=== PATIENT | male | born 1960 | race Caucasian/White ===

== ENCOUNTER 2017-02-03 21:17 | Inpatient (IN) | payer OTHER ==
[2017-02-03] MEDS ORDERED: MVI, Adult with Vitamin K 10 ML, Thiamine 100 MG, Folic Acid 1 MG in Lactated Ringers 1... IV ONE ×4 (21:41)
--- NOTE | 2017-02-03 21:47 | EDM.PDOC ---
ED HPI GENERAL MEDICAL PROBLEM - General Chief Complaint: Drug or Alcohol Abuse Stated Complaint: AMB Time Seen by Provider: 02/03/17 21:38 Source of Information: Reports: Patient History Limitations: Reports: No limitations - History of Present Illness INITIAL COMMENTS - FREE TEXT/NARRATIVE: This 56 yo male patient reports to the ED with generalized weakness and dehydration. The patient reports he is a chronic alcoholic, but ran out of ETOH 2 days ago. Since that time, the patient reports he has not been eating or drinking much due to lack of energy. The patient reports he has been to treatment for ETOH 7 times, but continues to go back to drinking. Onset: gradual Duration: Day(s):, Constant, Getting worse Location: Reports: generalized Quality: Reports: Dull Severity: moderate Improves with: Reports: None Worsens with: Reports: None Associated Symptoms: Reports: cough, weakness Bilateral Thoracic Pain Score (Numeric/FACES): 2 - Related Data Allergies Allergy/AdvReac Type Severity Reaction Status Date / Time No Known Allergies Allergy Verified 02/03/17 22:06 Home Meds: Home Meds Escitalopram [Lexapro] 10 mg PO DAILY #30 tablet 12/04/16 [Rx] Folic Acid 1 mg PO DAILY #30 tablet 12/04/16 [Rx] Magnesium Oxide 250 mg PO BIDM #60 tablet 12/04/16 [Rx] Multivitamins/Minerals [Vitamins and Minerals] 1 tab PO WITHBREAKFAST #30 tablet 12/04/16 [Rx] Thiamine [Vitamin B-1] 100 mg PO DAILY #30 tablet 12/04/16 [Rx] Past Medical History - Past Health History Medical/Surgical History: Denies Medical/Surgical History HEENT History: Reports: None Cardiovascular History: Reports: None Respiratory History: Reports: None Gastrointestinal History: Reports: None Genitourinary History: Reports: None Musculoskeletal History: Reports: None Other Musculoskeletal History: fractured left knuckle cast was placed Neurological History: Reports: None Psychiatric History: Reports: Anxiety, Depression Endocrine/Metabolic History: Reports: None Hematologic History: Reports: None Immunologic History: Reports: None Oncologic (Cancer) History: Reports: None Dermatologic History: Reports: None - Infectious Disease History Infectious Disease History: Reports: None - Past Surgical History Head Surgeries/Procedures: Reports: None Social & Family History - Family History Family Medical History: Noncontributory Cardiac: Reports: CAD (father) - Tobacco Use Smoking Status *Q: Current Every Day Smoker Years of Tobacco use: 35 Packs/Tins Daily: 1 Second Hand Smoke Exposure: No - Caffeine Use Caffeine Use: Reports: Coffee, Soda - Alcohol Use Days Per Week of Alcohol Use: 7 Number of Drinks Per Day: 2 Total Drinks Per Week: 14 - Recreational Drug Use Recreational Drug Use: No ED ROS GENERAL - Review of Systems Review Of Systems: ROS reveals no pertinent complaints other than HPI. ED EXAM, GENERAL - Physical Exam Exam: See Below Exam Limited By: No limitations General Appearance: alert, WD/WN, lethargic, moderate distress, thin Eye Exam: bilateral eye: EOMI, normal inspection Ears: normal external exam, normal canal, hearing grossly normal, normal TMs Nose: normal inspection, normal mucosa, no blood Throat/Mouth: Normal inspection, Normal lips, Normal teeth, Normal gums, Normal oropharynx, Normal voice, No airway compromise Head: atraumatic Neck: normal inspection, supple, non-tender, full range of motion Respiratory/Chest: no respiratory distress, lungs clear, normal breath sounds, no accessory muscle use, chest non-tender Cardiovascular: normal peripheral pulses, regular rate, rhythm, no edema, no gallop, no JVD, no murmur, no rub GI/Abdominal: normal bowel sounds, soft, non tender, no organomegaly, no distention, no abnormal bruit, no mass (Male) Exam: Deferred Rectal (Males) Exam: Deferred Extremities: normal inspection, normal range of motion, non-tender, normal capillary refill, no pedal edema Neurological: alert, oriented, CN II-XII intact, normal cognition, normal gait, normal reflexes, no motor/sensory deficits Psychiatric: flat affect Skin Exam: Warm, Dry, Intact, Normal color, No rash Lymphatic: no adenopathy Course - Vital Signs Last Recorded V/S: Last Vital Signs Temp 36.6 C 02/03/17 21:33 Pulse 103 H 02/03/17 21:33 Resp 16 02/03/17 21:33 BP 163/84 H 02/03/17 21:33 Pulse Ox 98 02/03/17 21:33 - Orders/Labs/Meds Orders: Active Orders 24 hr Category Date Time Status DRUG SCREEN URINE BIORAD [URCHEM] Stat Lab 02/03/17 21:21 Uncollected UA W/MICROSCOPIC [URIN] Stat Lab 02/03/17 21:21 Uncollected MVI, Adult with Vitamin K [Infuvite Adult] 10 ml Med 02/03/17 21:41 Active Thiamine [Vitamin B-1] 100 mg Folic Acid 1 mg Lactated Ringers [Ringers, Lactated] 1,000 ml IV .BOLUS Medication Orders Multivitamins/Minerals 10 ml/Thiamine HCl 100 mg/ Folic Acid 1 mg/ Lactated Ringer's 1,011.2 mls @ 999 mls/hr IV .BOLUS ONE Stop: 02/03/17 22:41 Last Admin: 02/03/17 21:53 Dose: 999 mls/hr Labs: Laboratory Tests 02/03/17 02/03/17 02/03/17 Range/Units 21:35 21:35 21:35 WBC 6.9 (5.0-10.0) 10^3/uL RBC 4.21 L (4.6-6.2) 10^6/uL Hgb 13.6 L (14.0-18.0) g/dL Hct 37.0 L (40.0-54.0) % MCV 87.9 (80-100) fL MCH 32.3 (27.0-34.0) pg MCHC 36.8 H (33.0-35.0) g/dL Plt Count 289 (150-450) 10^3/uL Neut % (Auto) 67.8 (42.2-75.2) % Lymph % (Auto) 15.3 L (20.5-50.1) % Hendricks % (Auto) 15.6 H (2-8) % Eos % (Auto) 0.4 L (1.0-3.0) % Baso % (Auto) 0.9 (0.0-1.0) % Sodium 122 L (135-145) mmol/L Potassium 2.4 L (3.6-5.0) mmol/L Chloride 78 L (101-111) mmol/L Carbon Dioxide 22.0 (21.0-31.0) mmol/L Anion Gap 24.4 BUN 11 (7-18) mg/dL Creatinine 1.0 (0.6-1.3) mg/dL Est Cr Clr Drug Dosing TNP Estimated GFR (MDRD) > 60 BUN/Creatinine Ratio 11.00 Glucose 179 H (74-105) mg/dL Calcium 8.6 (8.4-10.2) mg/dl Magnesium 1.7 L (1.8-2.5) mg/dL Total Bilirubin 3.0 H (0.2-1.0) mg/dL AST 157 H (10-42) IU/L ALT 182 H (10-60) IU/L Alkaline Phosphatase 95 (42-121) IU/L Ammonia 44 H (11-35) umol/L Total Protein 6.9 (6.7-8.2) g/dl Albumin 4.0 (3.2-5.5) g/dl Globulin 2.9 Albumin/Globulin Ratio 1.38 Amylase 111 H (28-100) U/L Lipase 68 H (22-51) U/L Acetaminophen < 10 Ethyl Alcohol < 5 mg/dL Meds: Medications Generic Name Dose Route Start Last Admin Trade Name Freq PRN Reason Stop Dose Admin Multivitamins/Minerals 10 ml/ 1,011.2 mls @ 999 mls/hr 02/03/17 21:41 21:53 Thiamine HCl 100 mg/ Folic IV 02/03/17 22:41 999 mls/hr Acid 1 mg/ Lactated Ringer's .BOLUS ONE Administration Departure - Departure Time of Disposition: 10:14 Disposition: Admitted As Inpatient 67 Condition: poor Clinical Impression: Alcohol abuse, Hyponatremia, Hypokalemia, Elevated liver enzymes Forms: ED Department Discharge Care Plan Goals: Discussed the patient's history, examination and lab results with Dr. Thomas. Dr. Thomas accepted the patient for continued evaluation and management as an inpatient at [facility] in [place]. - My Orders Last 24 Hours: My Active Orders 02/03/17 21:21 DRUG SCREEN URINE BIORAD [URCHEM] Stat UA W/MICROSCOPIC [URIN] Stat 02/03/17 21:41 MVI, Adult with Vitamin K [Infuvite Adult] 10 ml Thiamine [Vitamin B-1] 100 mg Folic Acid 1 mg Lactated Ringers [Ringers, Lactated] 1,000 ml IV .BOLUS - Assessment/Plan Last 24 Hours: My Active Orders 02/03/17 21:21 DRUG SCREEN URINE BIORAD [URCHEM] Stat UA W/MICROSCOPIC [URIN] Stat 02/03/17 21:41 MVI, Adult with Vitamin K [Infuvite Adult] 10 ml Thiamine [Vitamin B-1] 100 mg Folic Acid 1 mg Lactated Ringers [Ringers, Lactated] 1,000 ml IV .BOLUS
[2017-02-03 22:02] LABS: CHLORIDE,CL 78 mmol/L (101-111); SODIUM,NA 122 mmol/L (135-145)
[2017-02-03 22:07] LABS: ACETAMINOPHEN < 10
[2017-02-03] MEDS ORDERED: Ondansetron 4 MG/2 ML SDV IVPUSH PRN (22:50)
[2017-02-03] MEDS ORDERED: Ibuprofen 200 MG Tab PO PRN (22:50)
[2017-02-03] MEDS ORDERED: Magnesium Sulfate/Water 2 GM in Premix Bag 1 BAG IV ONE (23:00)
[2017-02-03] MEDS: Dextrose 5%-0.9% NaCl with KCl 1,000 ML IV SCH (23:22)
--- NOTE | 2017-02-03 23:46 | HP ---
CHIEF COMPLAINT: Generalized weakness. HISTORY OF PRESENT ILLNESS: The patient is a 56-year-old male, who was admitted to the emergency room because of generalized weakness. The patient admitted that he has been drinking continuously for the last several weeks, and he has run out of his alcohol supply for about 2 days ago, and he did not want to drive, and since then, the patient has not been eating or drinking much due to lack of energy. The patient admits that he has been coughing some greenish phlegm, but he denies any syncope, headache, fever, chills, chest pain, orthopnea, PND, or any significant abdominal pain, and because of the above, he was seen in the emergency room, and in the emergency room, he was noted to have hyponatremia, hypokalemia, hypomagnesemia, and electrolyte imbalance, dehydration, and signs of alcoholic hepatitis and alcohol withdrawal. He was then admitted for further evaluation and management. PAST MEDICAL HISTORY: Remarkable for alcohol abuse. He has been in the treatment center 7 times, but would sober up for couple of weeks then back again to drink. He has also history of alcoholic hepatitis and anxiety and depression. FAMILY HISTORY: Noncontributory. SOCIAL HISTORY: The patient is a smoker, smokes pack per day, and he drinks alcohol significantly. Denies any illicit drug use. HOME MEDICATIONS: Includes: 1. Multivitamins. 2. Thiamine. 3. Folic acid. 4. Lexapro. 5. Mag oxide. ALLERGIES: No known drug allergies. REVIEW OF SYSTEMS: As in HPI. The rest of the review of systems is negative. PHYSICAL EXAMINATION: General: The patient is alert and oriented x3. The patient is slightly jittery. Vital Signs: Blood pressure is 163/84, pulse of 103, respiration of 16, temperature of 36.6, and pulse oximetry is 98% on room air. HEENT: Normocephalic. There are pink palpebral conjunctivae with mild scleral icterus. No JVD. No lymphadenopathy. Mucous membranes moist. Neck: Supple. Skin turgor slightly diminished. Heart: Slightly tachycardic. No gallops. No rubs. Lungs. Equal bilaterally with coarse breath sounds, but no significant crackles and no wheezing. Abdomen: Soft and nontender. Bowel sounds positive. Extremities: Negative for any significant pedal edema. No calf tenderness. LABORATORY DATA: CBC; WBC 6.9, hemoglobin 13.6, hematocrit 37, and platelet is 289. Sodium is 122, potassium is 2.4, chloride of 78, glucose is 179, total bilirubin of 3, AST of 157, ALT of 182, ammonia of 44, amylase is 111, and lipase is 68. Alcohol level is less than 5. ADMITTING DIAGNOSES: 1. Alcoholism. 2. Hyponatremia. 3. Hypokalemia. 4. Hypomagnesemia. 5. Alcoholic hepatitis. 6. Chronic pancreatitis secondary to alcoholism. TREATMENT PLAN: The patient is going to be admitted to General Medicine floor with telemetry. He will be given IV fluids, and electrolytes are going to be repleted. He will be on DT prophylaxis, and the rest of the management if necessary. The patient does not wish to be intubated or resuscitated just in case he goes into cardiopulmonary arrest. [facility] /[id number]
[2017-02-04] MEDS ORDERED: Potassium Chloride 10 MEQ Tab.ER PO ONE ×2 (00:07→08:07)
[2017-02-04] MEDS: LORazepam 1 MG Tab PO PRN ×3 (00:16→21:41)
[2017-02-04 06:58] LABS: CHLORIDE,CL 88 mmol/L (101-111); SODIUM,NA 130 mmol/L (135-145)
[2017-02-04] MEDS: Dextrose 5%-0.9% NaCl with KCl 1,000 ML IV SCH ×2 (07:27→16:57)
[2017-02-04] MEDS: Thiamine 100 MG Tab PO SCH (08:49)
[2017-02-04] MEDS: Multivitamins, Therapeutic with Minerals Tab PO SCH (08:49)
[2017-02-04] MEDS: Escitalopram 10 MG Tab PO SCH (08:49)
[2017-02-04] MEDS: Nicotine 21 MG/24 Hr Patch TRDERM SCH (08:50)
[2017-02-04] MEDS: Folic Acid 1 MG Tab PO SCH (08:50)
--- NOTE | 2017-02-04 09:05 | PN ---
DATE: 02/04/2017 SUBJECTIVE: The patient is slowly improving, still a little bit weak though, but denies any chest pain, shortness of breath, headache, abdominal pain, or any other significant complaints. He is scheduled for a chest x-ray today because of his coughing spells. OBJECTIVE: Vital Signs: Blood pressure is 136/65, pulse of 75, respiration of 20, temperature of 99.1. Heart: Regular rate and rhythm. Normal S1 and S2. No gallops. No rubs. Lungs: Equal bilaterally with coarse breath sounds, but no significant crackles, no wheezing. Abdomen: Soft, nontender. Bowel sounds positive. Extremities: Negative for any significant pedal edema. No calf tenderness. MEDICATIONS: Reviewed. LABORATORY DATA: Lab workup this morning; sodium is 130 (improving); potassium is 2.8, slowly improving; glucose is 149, calcium is 8.3; total bilirubin of 2.4; AST of 117; ALT of 144; lipase of 53; amylase of 86, which is now within normal limits. IMAGING: Telemetry is sinus rhythm with no significant arrhythmia. PLAN: We will give potassium 40 mEq p.o. x1 today. Otherwise, we will continue with the rest of his management. He is scheduled for chest x-ray today because of his coughing spells. We will order physical therapy for evaluation and management and will advance his diet to tolerated. We will recheck comp panel in a.m. [facility] /[id number]
--- NOTE | 2017-02-04 10:58 | CR ---
Clinical history: 56-year-old male with cough. Interpretation: Subtle peribronchial "cuffing" suggesting reactive airway disease (mild bronchitis). Normal tracheal airway and no focal lobar pneumonia, atelectasis or collapse. Normal cardiac silhouette without cephalization of vascular flow, signs of alveolar edema or depende nt pleural effusion. No pneumothorax.
[2017-02-05] MEDS: Dextrose 5%-0.9% NaCl with KCl 1,000 ML IV SCH (00:57)
[2017-02-05] MEDS: LORazepam 1 MG Tab PO PRN ×2 (01:19→21:46)
[2017-02-05 07:02] LABS: CHLORIDE,CL 96 mmol/L (101-111); SODIUM,NA 132 mmol/L (135-145)
[2017-02-05] MEDS: Folic Acid 1 MG Tab PO SCH (08:28)
[2017-02-05] MEDS: Escitalopram 10 MG Tab PO SCH (08:28)
[2017-02-05] MEDS: Multivitamins, Therapeutic with Minerals Tab PO SCH (08:28)
[2017-02-05] MEDS: Nicotine 21 MG/24 Hr Patch TRDERM SCH (08:28)
[2017-02-05] MEDS: Thiamine 100 MG Tab PO SCH (08:28)
[2017-02-05] MEDS: Phosphorus #1 250 MG Tab PO SCH ×3 (14:19→21:47)
--- NOTE | 2017-02-05 14:19 | PCM.PN ---
- General Info Date of Service: 02/05/17 Admission Dx/Problem (Free Text): generalized weakness Subjective Update: patient is still complaining of being weak. He denies other symptoms. - Review of Systems General: Reports: Fatigue, Malaise. Denies: Fever, Chills, Night Sweats HEENT: Reports: no symptoms Pulmonary: Reports: no symptoms Cardiovascular: Reports: No Symptoms Gastrointestinal: Reports: No symptoms Genitourinary: Reports: no symptoms Musculoskeletal: Reports: no symptoms Skin: Reports: no symptoms Neurological: Reports: No Symptoms Psychiatric: Reports: no symptoms Systems Review Comment:: he is still feeling somewhat anxious - Patient Data Vitals - most recent: Last Vital Signs Temp 36.6 C 02/05/17 11:00 Pulse 79 02/05/17 11:00 Resp 18 02/05/17 11:00 BP 129/89 02/05/17 11:00 Pulse Ox 100 02/05/17 11:00 Weight - most recent: 71.214 kg I&O - last 24 hours: Intake & Output 02/04/17 02/05/17 02/05/17 22:59 06:59 14:59 Intake Total 1202 2902 588 Output Total 100 1700 Balance 1102 1202 588 Lab Results last 24 hrs: Laboratory Results - last 24 hr 02/05/17 02/05/17 02/05/17 Range/Units 06:12 13:15 13:15 PT 9.9 (9.0-12.0) SEC INR 1.0 (0.9-1.2) Sodium 132 L (135-145) mmol/L Potassium 3.7 (3.6-5.0) mmol/L Chloride 96 L (101-111) mmol/L Carbon Dioxide 27.0 (21.0-31.0) mmol/L Anion Gap 12.7 BUN 7 (7-18) mg/dL Creatinine 0.6 (0.6-1.3) mg/dL Est Cr Clr Drug Dosing 140.12 mL/min Estimated GFR (MDRD) > 60 BUN/Creatinine Ratio 11.66 Glucose 145 H (74-105) mg/dL Calcium 8.6 (8.4-10.2) mg/dl Phosphorus < 1.0 L (2.5-4.6) mg/dL Magnesium 1.7 L (1.8-2.5) mg/dL Total Bilirubin 1.3 H (0.2-1.0) mg/dL AST 129 H (10-42) IU/L ALT 130 H (10-60) IU/L Alkaline Phosphatase 71 (42-121) IU/L Total Protein 6.0 L (6.7-8.2) g/dl Albumin 3.4 (3.2-5.5) g/dl Globulin 2.6 Albumin/Globulin Ratio 1.31 Med Orders - Current: Current Medications Escitalopram Oxalate (Lexapro) 10 mg PO DAILY [facility] Last Admin: 02/05/17 08:28 Dose: 10 mg Folic Acid (Folic Acid) 1 mg PO DAILY [facility] Last Admin: 02/05/17 08:28 Dose: 1 mg Potassium Chloride/Dextrose/Sod Cl (D5 Ns With 20 Meq Kcl) 1,000 mls @ 125 mls/ hr IV ASDIRECTED [facility] Last Admin: 02/05/17 00:57 Dose: 125 mls/hr Ibuprofen (Motrin) 200 mg PO Q6H PRN PRN Reason: Pain (mild 1-3) Last Admin: 02/04/17 21:42 Dose: 200 mg Lorazepam (Ativan) 1 mg PO Q2H PRN PRN Reason: alcohol withdrawal/anxiety Last Admin: 02/05/17 01:19 Dose: 1 mg Magnesium Oxide (Magnesium Oxide) 250 mg PO BIDM [facility] Last Admin: 02/05/17 08:28 Dose: 250 mg Multivitamins/Minerals (Vitamins And Minerals) 1 tab PO WITHBREAKFAST [facility] Last Admin: 02/05/17 08:28 Dose: 1 tab Nicotine (Habitrol) 21 mg TRDERM DAILY [facility] Last Admin: 02/05/17 08:28 Dose: 21 mg Ondansetron HCl (Zofran) 4 mg IVPUSH Q4H PRN PRN Reason: Nausea/Vomiting Last Admin: 02/04/17 11:41 Dose: 4 mg Sodium Phosphate (Neutra-Phos) 500 mg PO QID [facility] Stop: 02/06/17 09:01 Thiamine HCl (Vitamin B-1) 100 mg PO DAILY [facility] Last Admin: 02/05/17 08:28 Dose: 100 mg Discontinued Medications Multivitamins/Minerals 10 ml/Thiamine HCl 100 mg/ Folic Acid 1 mg/ Lactated Ringer's 1,011.2 mls @ 999 mls/hr IV .BOLUS ONE Stop: 02/03/17 22:41 Last Admin: 02/03/17 21:53 Dose: 999 mls/hr Magnesium Sulfate 2 gm/ Premix 50 mls @ 25 mls/hr IV ONETIME ONE Stop: 02/04/17 00:59 Last Admin: 02/03/17 23:22 Dose: 25 mls/hr Potassium Chloride (Klor-Con 10) 40 meq PO ONETIME ONE Stop: 02/04/17 00:08 Last Admin: 02/04/17 00:49 Dose: 40 meq Potassium Chloride (Klor-Con 10) 40 meq PO ONETIME ONE Stop: 02/04/17 08:08 Last Admin: 02/04/17 08:49 Dose: 40 meq - Exam General: alert, oriented, cooperative, no acute distress. No: sedated, lethargic, obtunded HEENT: Pupils equal, Pupils reactive, EOMI, Mucous membr. moist/pink Neck: supple, trachea midline, no JVD Lungs: Clear to auscultation, Normal respiratory effort. No: Crackles, Rales, Rhonchi, Rub, Stridor, Wheezing Cardiovascular: Regular Rate, Regular Rhythm, No Murmurs Abdomen: bowel sounds present, soft, no tenderness, no distension (Male) Exam: No hernia Back Exam: normal inspection Extremities: no edema Skin: warm, dry, intact Neurological: no new focal deficit Psy/Mental Status: alert, normal affect, normal mood - Problem List Review Problem List Initiated/Reviewed/Updated: Yes - My Orders Last 24 Hours: My Active Orders 02/05/17 14:09 Phosphorus #1 [Neutra-Phos] 500 mg PO QID 02/06/17 05:11 CMP [COMPREHENSIVE METABOLIC PN,CMP] [CHEM] AM - Plan Plan:: alcoholism he was advised to continue counseling. educational manager is arranging outpatient counseling. Generalized weakness Acute on chronic Most likely due to alcoholism and hypophosphatemia Physical therapy as needed hypophosphatemia We'll replace orally as we don't have IV medications Recheck tomorrow Hypomagnesemia Replace via IV Hyponatremia improving encourage oral intake History of alcohol hepatitis Liver enzymes are elevated but trending downward Continue to recheck liver enzymes continue Lovenox for DVT prophylaxis He still wishes to be DNR/DNI
[2017-02-05] MEDS ORDERED: Polyethylene Glycol 3350 Powder 17 GM Packet PO PRN (16:11)
[2017-02-05] MEDS ORDERED: Docusate Sodium 100 MG Cap PO PRN (16:11)
[2017-02-05] MEDS ORDERED: Magnesium Hydroxide 400 MG/5 ML Susp 30 ML Cup PO PRN (16:12)
[2017-02-06] MEDS: LORazepam 1 MG Tab PO PRN (01:29)
[2017-02-06 06:41] LABS: CHLORIDE,CL 95 mmol/L (101-111); SODIUM,NA 134 mmol/L (135-145)
[2017-02-06] MEDS ORDERED: Magnesium Sulfate/Water 2 GM in Premix Bag 1 BAG IV ONE (07:30)
[2017-02-06 07:38] VITALS: BP 125/88
--- NOTE | 2017-02-06 08:01 | PCM.DCSUM1 ---
Discharge Summary - Hospital Course Free Text/Narrative:: 56-year-old male presented to the emergency room with generalized weakness. Patient is known for continuous alcohol drinking for the last several weeks. he ran out of alcohol 2 days prior to admission. he did not want to drive to by alcohol. Physical and he did not eat or drink fluids much due to lack of energy. He admits having cough with phlegm but denies fever, chills, shortness of breath, chest pain, headache, syncope, orthopnea, PND, abdominal pain, unilateral weakness, facial drooping, change in speech, or any other symptoms. in the emergency room he was noted to have low sodiumat 122. Low potassium at 2.4. Chloride 78. Magnesium 1.7. AST 157. ALT 182. Total protein 3.0. Ammonia 44. Amylase 111. Lipase 68.urine drug toxicity was negative. This phosphorus was checked only 3 days later and was less than one. Patient gradually was getting better. Physical therapy discharged him from [facility] as patient was able to walk without the support. His cough resolved. His phosphorus was replaced orally and his phosphorus level today is 1.9. His magnesium today is 1.6. Patient feels safe to be discharged home. He is able to feed himself, walk , do daily activities. He was advised to continue alcohol counseling as an outpatient and consider inpatient treatment in [place]. Patient is agreeable. He received magnesium 2 g IV once prior to discharge. I will send him with 4 doses of Neutra-Phos 500 mg qid. He was advised to follow up as a primary care provider in 2-3 days and asked his provider to check his phosphorus and magnesium at that time. - Discharge Data Discharge Date: 02/06/17 Discharge Disposition: Home, Self-Care 01 Condition: Good - Discharge Diagnosis/Problem(s) (1) Hypophosphatemia SNOMED Code(s): 8178514 ICD Code: E83.39 - OTHER DISORDERS OF PHOSPHORUS METABOLISM Status: Acute Current Visit: Yes (2) Hypomagnesemia SNOMED Code(s): 051791204 ICD Code: E83.42 - HYPOMAGNESEMIA Status: Acute Current Visit: Yes (3) Alcohol abuse SNOMED Code(s): 18057821 ICD Code: F10.10 - ALCOHOL ABUSE, UNCOMPLICATED Status: Chronic Current Visit: Yes (4) Elevated liver enzymes SNOMED Code(s): 965157186, 028697532 ICD Code: R74.8 - ABNORMAL LEVELS OF OTHER SERUM ENZYMES Status: Chronic Current Visit: Yes (5) Hypokalemia SNOMED Code(s): 72382376 ICD Code: E87.6 - HYPOKALEMIA Status: Acute Current Visit: Yes (6) Hyponatremia SNOMED Code(s): 68838628 ICD Code: E87.1 - HYPO-OSMOLALITY AND HYPONATREMIA Status: Resolved Current Visit: Yes (7) Alcoholic hepatitis SNOMED Code(s): 683086433 ICD Code: K70.10 - ALCOHOLIC HEPATITIS WITHOUT ASCITES Status: Chronic Current Visit: No Qualifiers: Ascites presence: without ascites Qualified Code(s): K70.10 - Alcoholic hepatitis without ascites - Patient Summary/Data Consults: Consultations 02/04/17 08:50 Consult to Physical Therapy [PT Evaluation and Treatment] [CONS] Routine - Patient Instructions Diet: Regular Diet as Tolerated (encourage her self to eat at least 4-5 times a day. tried Ensure 34 times a day before meals) Activity: As Tolerated (try to exercise daily for 45 minutes on a regular basis) Driving: Do Not Drive (and to feel stronger) Showering/Bathing: May Shower Notify Provider of: Fever - Discharge Plan Prescriptions/Med Rec: Phosphorus #1 [Neutra-Phos] 500 mg PO QID #8 tablet Home Medications: Home Meds Escitalopram [Lexapro] 10 mg PO DAILY #30 tablet 12/04/16 [Rx] Folic Acid 1 mg PO DAILY #30 tablet 12/04/16 [Rx] Magnesium Oxide 250 mg PO BIDM #60 tablet 12/04/16 [Rx] Multivitamins/Minerals [Vitamins and Minerals] 1 tab PO WITHBREAKFAST #30 tablet 12/04/16 [Rx] Thiamine [Vitamin B-1] 100 mg PO DAILY #30 tablet 12/04/16 [Rx] Nicotine [Habitrol] 21 mg TRDERM DAILY patch 02/06/17 [Rx] Phosphorus #1 [Neutra-Phos] 500 mg PO QID #8 tablet 02/06/17 [Rx] Referrals: PCP,Unobtain [Primary Care Provider] - 02/08/17 (See your primary care provider or any other provider in 2-3 days. At your appointment please ask your provider to check your blood phosphorus and magnesium levels) - General Info Date of Service: 02/06/17 Admission Dx/Problem (Free Text: generalized weakness Subjective Update: today patient denies any symptoms other than being somewhat weak which markedly improved from yesterday according to him. - Review of Systems General: Reports: No Symptoms HEENT: Reports: no symptoms Pulmonary: Reports: no symptoms Cardiovascular: Reports: No Symptoms Gastrointestinal: Reports: No symptoms Genitourinary: Reports: no symptoms Musculoskeletal: Reports: no symptoms Skin: Reports: no symptoms Neurological: Reports: No Symptoms Psychiatric: Denies: confusion, agitation, hallucinations, suicidal ideation, homicidal ideation - Patient Data Vitals - Most Recent: Last Vital Signs Temp 36.8 C 02/06/17 07:36 Pulse 100 02/06/17 03:49 Resp 16 02/06/17 07:36 BP 125/88 02/06/17 07:36 Pulse Ox 100 02/06/17 07:36 Weight - Most Recent: 71.214 kg I&O - Last 24 hours: Intake & Output 02/05/17 02/06/17 02/06/17 22:59 06:59 14:59 Intake Total 350 1979 Balance 350 1979 Lab Results - Last 24 hrs: Laboratory Results - last 24 hr 02/05/17 02/05/17 02/06/17 Range/Units 13:15 13:15 06:19 PT 9.9 (9.0-12.0) SEC INR 1.0 (0.9-1.2) Sodium 134 L (135-145) mmol/L Potassium 3.7 (3.6-5.0) mmol/L Chloride 95 L (101-111) mmol/L Carbon Dioxide 32.0 H (21.0-31.0) mmol/L Anion Gap 10.7 BUN 6 L (7-18) mg/dL Creatinine 0.6 (0.6-1.3) mg/dL Est Cr Clr Drug Dosing 140.12 mL/min Estimated GFR (MDRD) > 60 BUN/Creatinine Ratio 10.00 Glucose 91 (74-105) mg/dL Calcium 9.0 (8.4-10.2) mg/dl Phosphorus < 1.0 L 1.9 L (2.5-4.6) mg/dL Magnesium 1.7 L 1.6 L (1.8-2.5) mg/dL Total Bilirubin 0.9 (0.2-1.0) mg/dL AST 154 H (10-42) IU/L ALT 168 H (10-60) IU/L Alkaline Phosphatase 83 (42-121) IU/L Total Protein 6.5 L (6.7-8.2) g/dl Albumin 3.8 (3.2-5.5) g/dl Globulin 2.7 Albumin/Globulin Ratio 1.41 Med Orders - Current: Current Medications Docusate Sodium (Colace) 200 mg PO BID PRN PRN Reason: Constipation Escitalopram Oxalate (Lexapro) 10 mg PO DAILY [facility] Last Admin: 02/05/17 08:28 Dose: 10 mg Folic Acid (Folic Acid) 1 mg PO DAILY [facility] Last Admin: 02/05/17 08:28 Dose: 1 mg Potassium Chloride/Dextrose/Sod Cl (D5 Ns With 20 Meq Kcl) 1,000 mls @ 125 mls/ hr IV ASDIRECTED [facility] Last Admin: 02/05/17 00:57 Dose: 125 mls/hr Magnesium Sulfate 2 gm/ Premix 50 mls @ 25 mls/hr IV ONETIME ONE Stop: 02/06/17 09:29 Ibuprofen (Motrin) 200 mg PO Q6H PRN PRN Reason: Pain (mild 1-3) Last Admin: 02/04/17 21:42 Dose: 200 mg Lorazepam (Ativan) 1 mg PO Q2H PRN PRN Reason: alcohol withdrawal/anxiety Last Admin: 02/06/17 01:29 Dose: 1 mg Magnesium Hydroxide (Milk Of Magnesia) 30 ml PO Q8H PRN PRN Reason: Constipation Magnesium Oxide (Magnesium Oxide) 250 mg PO BIDM [facility] Last Admin: 02/05/17 17:15 Dose: 250 mg Multivitamins/Minerals (Vitamins And Minerals) 1 tab PO WITHBREAKFAST [facility] Last Admin: 02/05/17 08:28 Dose: 1 tab Nicotine (Habitrol) 21 mg TRDERM DAILY [facility] Last Admin: 02/05/17 08:28 Dose: 21 mg Ondansetron HCl (Zofran) 4 mg IVPUSH Q4H PRN PRN Reason: Nausea/Vomiting Last Admin: 02/04/17 11:41 Dose: 4 mg Polyethylene Glycol (Miralax) 17 gm PO DAILY PRN PRN Reason: Constipation Sodium Phosphate (Neutra-Phos) 500 mg PO QID [facility] Stop: 02/06/17 09:01 Last Admin: 02/05/17 21:47 Dose: 500 mg Thiamine HCl (Vitamin B-1) 100 mg PO DAILY [facility] Last Admin: 02/05/17 08:28 Dose: 100 mg Discontinued Medications Multivitamins/Minerals 10 ml/Thiamine HCl 100 mg/ Folic Acid 1 mg/ Lactated Ringer's 1,011.2 mls @ 999 mls/hr IV .BOLUS ONE Stop: 02/03/17 22:41 Last Admin: 02/03/17 21:53 Dose: 999 mls/hr Magnesium Sulfate 2 gm/ Premix 50 mls @ 25 mls/hr IV ONETIME ONE Stop: 02/04/17 00:59 Last Admin: 02/03/17 23:22 Dose: 25 mls/hr Potassium Chloride (Klor-Con 10) 40 meq PO ONETIME ONE Stop: 02/04/17 00:08 Last Admin: 02/04/17 00:49 Dose: 40 meq Potassium Chloride (Klor-Con 10) 40 meq PO ONETIME ONE Stop: 02/04/17 08:08 Last Admin: 02/04/17 08:49 Dose: 40 meq - Exam General: Reports: alert, oriented, cooperative. Denies: no acute distress, mild distress, moderate distress, severe distress, sedated, lethargic HEENT: Reports: Pupils equal, Pupils reactive, EOMI, Mucous membr. moist/pink. Denies: Scleral icterus Neck: Reports: supple, trachea midline, no JVD Lungs: Reports: Clear to auscultation, Normal respiratory effort. Denies: Decreased breath sounds, Crackles, Rales, Rhonchi, Rub, Stridor, Wheezing Cardiovascular: Reports: Regular Rate, Regular Rhythm Abdomen: Reports: bowel sounds present, soft, no tenderness, no distension. Denies: rigidity, rebound, guarding, tenderness, distension, abnormal bowel sounds, CVA tenderness, organomegaly (Male) Exam: No hernia, Deferred Rectal (Males) Exam: Deferred Back Exam: Reports: normal inspection, full range of motion Extremities: Reports: no edema, normal pulses, no clubbing, no cyanosis, no calf tenderness, edema. Denies: calf tenderness Skin: Reports: warm, dry, intact Neurological: Reports: no new focal deficit, normal gait, normal speech, normal tone, strength equal bilateral, reflexes equal bilateral, sensation intact, cranial nerves intact Psy/Mental Status: Reports: alert, normal affect, normal mood. Denies: anxious , depressed, agitated, suicidal ideation, homicidal ideation, hallucinations *Q Meaningful Use (DIS) - VTE *Q VTE Criteria *Q: - Stroke *Q Stroke Criteria *Q: - AMI *Q AMI Criteria *Q:
[2017-02-06] MEDS: Thiamine 100 MG Tab PO SCH (08:35)
[2017-02-06] MEDS: Escitalopram 10 MG Tab PO SCH (08:35)
[2017-02-06] MEDS: Folic Acid 1 MG Tab PO SCH (08:36)
[2017-02-06] MEDS: Phosphorus #1 250 MG Tab PO SCH (08:36)
[2017-02-06] MEDS: Multivitamins, Therapeutic with Minerals Tab PO SCH (08:37)
[2017-02-06] MEDS: Nicotine 21 MG/24 Hr Patch TRDERM SCH (08:37)
== END 2017-02-06 14:00 | disposition home or self-care (01) | DRG 897 ==
LOC: DL.ED 21:17 → UNDOADMIN 22:30 → DL.MS 22:30
PROVIDERS: ADMIT Internal Medicine; ATTEND Internal Medicine
DX: F10.10 Alcohol abuse, uncomplicated (principal); E87.1 Hypo-osmolality and hyponatremia; K86.0 Alcohol-induced chronic pancreatitis; K70.10 Alcoholic hepatitis without ascites; E83.39 Other disorders of phosphorus metabolism; E83.42 Hypomagnesemia; R74.8 Abnormal levels of other serum enzymes; E87.6 Hypokalemia; F41.8 Other specified anxiety disorders; F17.200 Nicotine dependence, unspecified, uncomplicated; Y90.0 Blood alcohol level of less than 20 mg/100 ml; Z66 Do not resuscitate; R05 Cough
CPT/HCPCS: 36415; 71020; 80053; 80305; 81001; 82140; 82150; 83690; 83735; 84100; 85025; 85610; 96365; 97162-GP; 99284; A9270-GY; G0480; J2405; J3411; J3475; J3480; J3490; J7120

== ENCOUNTER 2017-03-13 12:50 | Emergency (ER) | payer OTHER ==
--- NOTE | 2017-03-13 12:49 | EDM.PDOC ---
ED HPI GENERAL MEDICAL PROBLEM - General Chief Complaint: Drug or Alcohol Abuse Stated Complaint: BLACKED OUT Time Seen by Provider: 03/13/17 12:48 Source of Information: Reports: Patient, EMS, Old records, RN, RN notes reviewed History Limitations: Reports: Altered mental status, Intoxication - History of Present Illness INITIAL COMMENTS - FREE TEXT/NARRATIVE: Arrives by ambulance with c/o frequent falls for 3 or 4 weeks. He admits to daily alcohol abuse, drinking approx. 1/3rd of a 1/2 gal. daily for several years. Pt has been to alcohol rehab/tx x7, most recently in Dec 2016 after which he was sober for only 1-2 weeks. Pt denies any significant head injury. Pt is unable to give any further history. Onset: unknown/unsure Duration: Week(s): (3-4), Recurring Location: Reports: generalized Severity: severe Improves with: Reports: None Worsens with: Reports: None Context: Reports: Other (alcohol abuse). Denies: Activity, Exercise, Lifting, Sick contact, Trauma Associated Symptoms: Reports: no other symptoms Face Pain Score (Numeric/FACES): 2 - Related Data Allergies Allergy/AdvReac Type Severity Reaction Status Date / Time No Known Allergies Allergy Verified 03/13/17 12:59 Home Meds: Home Meds Escitalopram [Lexapro] 10 mg PO DAILY #30 tablet 12/04/16 [Rx] Folic Acid 1 mg PO DAILY #30 tablet 12/04/16 [Rx] Magnesium Oxide 250 mg PO BIDM #60 tablet 12/04/16 [Rx] Multivitamins/Minerals [Vitamins and Minerals] 1 tab PO WITHBREAKFAST #30 tablet 12/04/16 [Rx] Thiamine [Vitamin B-1] 100 mg PO DAILY #30 tablet 12/04/16 [Rx] Nicotine [Habitrol] 21 mg TRDERM DAILY patch 02/06/17 [Rx] Phosphorus #1 [Neutra-Phos] 500 mg PO QID #8 tablet 02/06/17 [Rx] Past Medical History - Past Health History Medical/Surgical History: Denies Medical/Surgical History HEENT History: Reports: Other (see below) Other HEENT History: reading glasses Cardiovascular History: Reports: Hypertension Respiratory History: Reports: None Gastrointestinal History: Reports: None Genitourinary History: Reports: None Musculoskeletal History: Reports: None Other Musculoskeletal History: fractured left knuckle cast was placed Neurological History: Reports: Seizure Other Neuro History: due to ETOH intoxication Psychiatric History: Reports: Addiction, Anxiety, Depression, Other (see below) Other Psychiatric History: ETOH addiction Endocrine/Metabolic History: Reports: None Hematologic History: Reports: Folic acid Other Hematologic History: on folic acid supplement Immunologic History: Reports: None Oncologic (Cancer) History: Reports: None Dermatologic History: Reports: None - Infectious Disease History Infectious Disease History: Reports: None - Past Surgical History Head Surgeries/Procedures: Reports: None Social & Family History - Family History Family Medical History: Noncontributory Cardiac: Reports: CAD Psychiatric: Reports: Other (see below) Other Psychiatric Family History: brother of ETOH abuse - Tobacco Use Smoking Status *Q: Current Every Day Smoker Years of Tobacco use: 34 Packs/Tins Daily: 0.5 Used Tobacco, but Quit: No Second Hand Smoke Exposure: No - Caffeine Use Caffeine Use: Reports: Soda Caffeine Use Comment: coffee makes pt sick - Alcohol Use Days Per Week of Alcohol Use: 7 Number of Drinks Per Day: 5 Total Drinks Per Week: 35 - Recreational Drug Use Recreational Drug Use: No - Living Situation & Occupation Living situation: Reports: , with spouse Occupation: unemployed ED ROS GENERAL - Review of Systems Review Of Systems: ROS reveals no pertinent complaints other than HPI. - Physical Exam Exam: See Below Exam Limited By: Altered mental status General Appearance: alert, no apparent distress, thin, other (chronically ill appearing) Eye Exam: bilateral eye: EOMI, normal inspection, PERRL Ears: normal external exam, normal canal, hearing grossly normal, normal TMs Nose: normal inspection, normal mucosa, no blood Throat/Mouth: Normal lips, Normal oropharynx, Normal voice, No airway compromise , Other (dry oral membranes) Head Exam: normocephalic, other (facial contusions, scalp contusions) Neck: normal inspection, supple, non-tender, full range of motion. No: lymphadenopathy (L), lymphadenopathy (R) Respiratory/Chest: no respiratory distress, lungs clear, normal breath sounds, no accessory muscle use, chest non-tender Cardiovascular: normal peripheral pulses, regular rate, rhythm, no edema, no gallop, no JVD, no murmur, no rub GI/Abdominal: Normal Bowel Sounds, Soft, Non-Tender, No Distention, No Abnormal Bruit, No Mass, Hepatomegaly. No: Guarding, Rigid, Rebound (Male) Exam: Deferred Rectal (Males) Exam: Deferred Neuro Exam (Abbreviated): alert, oriented, CN II-XII intact, normal cognition, no motor/sensory deficits Back Exam: normal inspection, full range of motion, NT Extremities: normal inspection, normal range of motion, non-tender, no pedal edema, normal capillary refill Psychiatric: normal affect, normal mood Skin Exam: Warm, Dry, No rash, Wound/incision (subacute abrasion to nose), Other (multiple contusions from head to toe in various stages of healing) EKG INTERPRETATION EKG Date: 03/13/17 Time: 12:59 Rhythm: other (SR) Rate (beats/min): 97 [place]: normal P-wave: present QRS: other (PVC) ST-T: normal QT: prolonged ME/PQ Interval: short ME interval Comparison: NA - no prior EKG Course - Vital Signs Last Recorded V/S: Last Vital Signs Temp 36.2 C 03/13/17 12:55 Pulse 100 03/13/17 12:55 Resp 20 03/13/17 12:55 BP 126/92 H 03/13/17 12:55 Pulse Ox 100 03/13/17 12:55 Orthostatic Blood Pressure [ 67/48 Standing] Orthostatic Blood Pressure [ 96/71 Sitting] Orthostatic Blood Pressure [ 122/82 Supine] - Orders/Labs/Meds Orders: Active Orders 24 hr Category Date Time Status EKG 12 Lead [EKG Documentation Completion] [RC] STAT Care 03/13/17 12:58 Active Peripheral IV Care [RC] . DIRECTED Care 03/13/17 12:59 Active Magnesium Sulfate/Water [Magnesium Sulfate 4 GM in Med 03/13/17 14:04 Active Water 100 ML] 100 ml IV ONETIME Sodium Chloride 0.9% [Normal Saline] 1,000 ml Med 03/13/17 14:05 Active IV .BOLUS Sodium Chloride 0.9% [Saline Flush] Med 03/13/17 12:59 Active 10 ml FLUSH ASDIRECTED PRN Peripheral IV Insertion Adult [OM.PC] Stat Oth 03/13/17 12:58 Ordered Medication Orders Magnesium Sulfate (Magnesium Sulfate 4 Gm In Water 100 Ml) 100 mls @ 25 mls/hr IV ONETIME ONE Stop: 03/13/17 18:03 Last Admin: 03/13/17 14:47 Dose: 25 mls/hr Sodium Chloride (Normal Saline) 1,000 mls @ 999 mls/hr IV .BOLUS ONE Stop: 03/13/17 15:05 Last Admin: 03/13/17 14:47 Dose: 999 mls/hr Sodium Chloride (Saline Flush) 10 ml FLUSH ASDIRECTED PRN PRN Reason: Keep Vein Open Last Admin: 03/13/17 13:18 Dose: 10 ml Labs: Laboratory Tests 03/13/17 03/13/17 03/13/17 Range/Units 13:07 13:07 13:07 WBC 5.8 (5.0-10.0) 10^3/uL RBC 4.14 L (4.6-6.2) 10^6/uL Hgb 14.1 (14.0-18.0) g/dL Hct 38.5 L (40.0-54.0) % MCV 93.0 (80-100) fL MCH 34.1 H (27.0-34.0) pg MCHC 36.6 H (33.0-35.0) g/dL Plt Count 168 (150-450) 10^3/uL Neut % (Auto) 60.0 (42.2-75.2) % Lymph % (Auto) 18.2 L (20.5-50.1) % [place] % (Auto) 20.5 H (2-8) % Eos % (Auto) 0.3 L (1.0-3.0) % Baso % (Auto) 1.0 (0.0-1.0) % Add Manual Diff Yes Neutrophils % (Manual) 60 % Band Neutrophils % 5 % Lymphocytes % (Manual) 19 % Monocytes % (Manual) 15 % Eosinophils % (Manual) 1 % PT 10.2 (9.0-12.0) SEC INR 1.0 (0.9-1.2) APTT 24.4 (22.0-34.0) SEC Sodium 126 L (135-145) mmol/L Potassium 2.9 L (3.6-5.0) mmol/L Chloride 82 L (101-111) mmol/L Carbon Dioxide 20.0 L (21.0-31.0) mmol/L Anion Gap 26.9 BUN 15 (7-18) mg/dL Creatinine 0.9 (0.6-1.3) mg/dL Est Cr Clr Drug Dosing 89.25 mL/min Estimated GFR (MDRD) > 60 BUN/Creatinine Ratio 16.66 Glucose 103 (74-105) mg/dL Calcium 9.9 (8.4-10.2) mg/dl Magnesium 1.6 L (1.8-2.5) mg/dL Total Bilirubin 2.5 H (0.2-1.0) mg/dL AST 77 H (10-42) IU/L ALT 79 H (10-60) IU/L Alkaline Phosphatase 113 (42-121) IU/L Ammonia (11-35) umol/L Creatine Kinase 144 (26-174) IU/L Troponin I < 0.02 (0.00-0.02) ng/ml Total Protein 7.9 (6.7-8.2) g/dl Albumin 4.7 (3.2-5.5) g/dl Globulin 3.2 Albumin/Globulin Ratio 1.47 Amylase 104 H (28-100) U/L Lipase 45 (22-51) U/L TSH, Ultra Sensitive (0.35-7.0) uIu/mL Urine Color (YELLOW) Urine Appearance (CLEAR) Urine pH (5.0-9.0) Ur Specific [place] (1.005-1.030) Urine Protein (NEGATIVE) Urine Glucose (UA) (NEGATIVE) Urine Ketones (NEGATIVE) Urine Occult Blood (NEGATIVE) Urine Nitrite (NEGATIVE) Urine Bilirubin (NEGATIVE) Urine Urobilinogen (0.2-1.0) mg/dL Ur Leukocyte Esterase (NEGATIVE) Urine RBC /HPF Urine WBC (0-5/HPF) /HPF Ur Epithelial Cells /HPF Amorphous Sediment (0/HPF) /HPF Urine Mucus /LPF Urine Opiates Screen (NEGATIVE) Ur Oxycodone Screen (NEGATIVE) Urine Methadone Screen (NEGATIVE) Ur Barbiturates Screen (NEGATIVE) U Tricyclic Antidepress (NEGATIVE) Ur Phencyclidine Scrn (NEGATIVE) Ur Amphetamine Screen (NEGATIVE) U Methamphetamines Scrn (NEGATIVE) Urine MDMA Screen (NEGATIVE) U Benzodiazepines Scrn (NEGATIVE) Urine Cocaine Screen (NEGATIVE) U Marijuana (THC) Screen (NEGATIVE) Ethyl Alcohol 34 mg/dL 03/13/17 03/13/17 03/13/17 Range/Units 13:07 13:07 14:15 WBC (5.0-10.0) 10^3/uL RBC (4.6-6.2) 10^6/uL Hgb (14.0-18.0) g/dL Hct (40.0-54.0) % MCV (80-100) fL MCH (27.0-34.0) pg MCHC (33.0-35.0) g/dL Plt Count (150-450) 10^3/uL Neut % (Auto) (42.2-75.2) % Lymph % (Auto) (20.5-50.1) % [place] % (Auto) (2-8) % Eos % (Auto) (1.0-3.0) % Baso % (Auto) (0.0-1.0) % Add Manual Diff Neutrophils % (Manual) % Band Neutrophils % % Lymphocytes % (Manual) % Monocytes % (Manual) % Eosinophils % (Manual) % PT (9.0-12.0) SEC INR (0.9-1.2) APTT (22.0-34.0) SEC Sodium (135-145) mmol/L Potassium (3.6-5.0) mmol/L Chloride (101-111) mmol/L Carbon Dioxide (21.0-31.0) mmol/L Anion Gap BUN (7-18) mg/dL Creatinine (0.6-1.3) mg/dL Est Cr Clr Drug Dosing mL/min Estimated GFR (MDRD) BUN/Creatinine Ratio Glucose (74-105) mg/dL Calcium (8.4-10.2) mg/dl Magnesium (1.8-2.5) mg/dL Total Bilirubin (0.2-1.0) mg/dL AST (10-42) IU/L ALT (10-60) IU/L Alkaline Phosphatase (42-121) IU/L Ammonia 47 H (11-35) umol/L Creatine Kinase (26-174) IU/L Troponin I (0.00-0.02) ng/ml Total Protein (6.7-8.2) g/dl Albumin (3.2-5.5) g/dl Globulin Albumin/Globulin Ratio Amylase (28-100) U/L Lipase (22-51) U/L TSH, Ultra Sensitive 2.50 (0.35-7.0) uIu/mL Urine Color (YELLOW) Urine Appearance (CLEAR) Urine pH (5.0-9.0) Ur Specific [place] (1.005-1.030) Urine Protein (NEGATIVE) Urine Glucose (UA) (NEGATIVE) Urine Ketones (NEGATIVE) Urine Occult Blood (NEGATIVE) Urine Nitrite (NEGATIVE) Urine Bilirubin (NEGATIVE) Urine Urobilinogen (0.2-1.0) mg/dL Ur Leukocyte Esterase (NEGATIVE) Urine RBC /HPF Urine WBC (0-5/HPF) /HPF Ur Epithelial Cells /HPF Amorphous Sediment (0/HPF) /HPF Urine Mucus /LPF Urine Opiates Screen Negative (NEGATIVE) Ur Oxycodone Screen Negative (NEGATIVE) Urine Methadone Screen Negative (NEGATIVE) Ur Barbiturates Screen Negative (NEGATIVE) U Tricyclic Antidepress Negative (NEGATIVE) Ur Phencyclidine Scrn Negative (NEGATIVE) Ur Amphetamine Screen Negative (NEGATIVE) U Methamphetamines Scrn Negative (NEGATIVE) Urine MDMA Screen Negative (NEGATIVE) U Benzodiazepines Scrn Negative (NEGATIVE) Urine Cocaine Screen Negative (NEGATIVE) U Marijuana (THC) Screen Negative (NEGATIVE) Ethyl Alcohol mg/dL 03/13/17 Range/Units 14:15 WBC (5.0-10.0) 10^3/uL RBC (4.6-6.2) 10^6/uL Hgb (14.0-18.0) g/dL Hct (40.0-54.0) % MCV (80-100) fL MCH (27.0-34.0) pg MCHC (33.0-35.0) g/dL Plt Count (150-450) 10^3/uL Neut % (Auto) (42.2-75.2) % Lymph % (Auto) (20.5-50.1) % [place] % (Auto) (2-8) % Eos % (Auto) (1.0-3.0) % Baso % (Auto) (0.0-1.0) % Add Manual Diff Neutrophils % (Manual) % Band Neutrophils % % Lymphocytes % (Manual) % Monocytes % (Manual) % Eosinophils % (Manual) % PT (9.0-12.0) SEC INR (0.9-1.2) APTT (22.0-34.0) SEC Sodium (135-145) mmol/L Potassium (3.6-5.0) mmol/L Chloride (101-111) mmol/L Carbon Dioxide (21.0-31.0) mmol/L Anion Gap BUN (7-18) mg/dL Creatinine (0.6-1.3) mg/dL Est Cr Clr Drug Dosing mL/min Estimated GFR (MDRD) BUN/Creatinine Ratio Glucose (74-105) mg/dL Calcium (8.4-10.2) mg/dl Magnesium (1.8-2.5) mg/dL Total Bilirubin (0.2-1.0) mg/dL AST (10-42) IU/L ALT (10-60) IU/L Alkaline Phosphatase (42-121) IU/L Ammonia (11-35) umol/L Creatine Kinase (26-174) IU/L Troponin I (0.00-0.02) ng/ml Total Protein (6.7-8.2) g/dl Albumin (3.2-5.5) g/dl Globulin Albumin/Globulin Ratio Amylase (28-100) U/L Lipase (22-51) U/L TSH, Ultra Sensitive (0.35-7.0) uIu/mL Urine Color Dark yellow (YELLOW) Urine Appearance Slightly cloudy (CLEAR) Urine pH 6.5 (5.0-9.0) Ur Specific [place] 1.015 (1.005-1.030) Urine Protein 100 H (NEGATIVE) Urine Glucose (UA) Negative (NEGATIVE) Urine Ketones 80 H (NEGATIVE) Urine Occult Blood Negative (NEGATIVE) Urine Nitrite Negative (NEGATIVE) Urine Bilirubin Moderate H (NEGATIVE) Urine Urobilinogen 2.0 H (0.2-1.0) mg/dL Ur Leukocyte Esterase Negative (NEGATIVE) Urine RBC 0-5 /HPF Urine WBC 0-5 (0-5/HPF) /HPF Ur Epithelial Cells Rare /HPF Amorphous Sediment Rare (0/HPF) /HPF Urine Mucus Moderate H /LPF Urine Opiates Screen (NEGATIVE) Ur Oxycodone Screen (NEGATIVE) Urine Methadone Screen (NEGATIVE) Ur Barbiturates Screen (NEGATIVE) U Tricyclic Antidepress (NEGATIVE) Ur Phencyclidine Scrn (NEGATIVE) Ur Amphetamine Screen (NEGATIVE) U Methamphetamines Scrn (NEGATIVE) Urine MDMA Screen (NEGATIVE) U Benzodiazepines Scrn (NEGATIVE) Urine Cocaine Screen (NEGATIVE) U Marijuana (THC) Screen (NEGATIVE) Ethyl Alcohol mg/dL Meds: Medications Generic Name Dose Route Start Last Admin Trade Name Freq PRN Reason Stop Dose Admin Magnesium Sulfate 100 mls @ 25 mls/hr 03/13/17 14:04 03/13/17 14:47 Magnesium Sulfate 4 Gm In Water 100 Ml IV 03/13/17 18:03 25 mls/hr ONETIME ONE Administration Sodium Chloride 1,000 mls @ 999 mls/hr 03/13/17 14:05 03/13/17 14:47 Normal Saline IV 03/13/17 15:05 999 mls/hr .BOLUS ONE Administration Sodium Chloride 10 ml 03/13/17 12:59 03/13/17 13:18 Saline Flush FLUSH 10 ml ASDIRECTED PRN Administration Keep Vein Open Discontinued Medications Generic Name Dose Route Start Last Admin Trade Name Freq PRN Reason Stop Dose Admin Multivitamins/Minerals 10 ml/ 1,011.2 mls @ 999 mls/hr 03/13/17 13:00 13:32 Thiamine HCl 100 mg/ Folic IV 03/13/17 14:00 999 mls/hr Acid 1 mg/ Lactated Ringer's .BOLUS ONE Administration Potassium Chloride 10 meq/ 100 mls @ 100 mls/hr 03/13/17 13:59 03/13/17 14:47 Premix IV 03/13/17 14:58 100 mls/hr ONETIME ONE Administration Potassium Chloride 40 meq 03/13/17 13:58 03/13/17 14:48 Klor-Con 10 PO 03/13/17 13:59 40 meq ONETIME ONE Administration - Radiology Interpretation Free Text/Narrative:: CXR: Not acute process per Rad. report. CT Head: multilobar multi-infarct disease and extensive frontal lobe ischemia. Large arachnoid cyst left temporal lobe fossa. No fracture or sign of closed head trauma per Rad. report. CT Results Date: 03/13/17 - Re-Assessments/Exams Free Text/Narrative Re-Assessment/Exam: 03/13/17 15:15 I explained the exam findings, results of all diagnostic tests, working diagnosis, and any potential or additionally considered diagnoses, treatment/ disposition plan, self/home care instructions, rational for the diagnosis/ treatment plan/disposition plan, anticipated course of illness, and follow up instructions to the pt and/or pts family or guardian. The pt and/or pts family or guardian acknowledges understanding of the above explanation(s), and of the signs and symptoms which should prompt the return of the pt to the ER should those or any other concerning symptoms develop. Departure - Departure Time of Disposition: 14:40 Disposition: DC/Tfer to [facility] 02 Condition: serious Clinical Impression: Ischemic stroke of frontal lobe, Hyponatremia, Hypokalemia, Hypomagnesemia, Arachnoid cyst, Severe alcohol use disorder, Contusion, multiple sites, Frequent falls, Orthostatic hypotension - Discharge Information Forms: ED Department Discharge, Interfacility Transfer EMTALA - My Orders Last 24 Hours: My Active Orders 03/13/17 12:58 EKG 12 Lead [EKG Documentation Completion] [RC] STAT Peripheral IV Insertion Adult [OM.PC] Stat 03/13/17 12:59 Peripheral IV Care [RC] . DIRECTED Sodium Chloride 0.9% [Saline Flush] 10 ml FLUSH ASDIRECTED PRN 03/13/17 14:04 Magnesium Sulfate/Water [Magnesium Sulfate 4 GM in Water 100 ML] 100 ml IV ONETIME 03/13/17 14:05 Sodium Chloride 0.9% [Normal Saline] 1,000 ml IV .BOLUS - Assessment/Plan Last 24 Hours: My Active Orders 03/13/17 12:58 EKG 12 Lead [EKG Documentation Completion] [RC] STAT Peripheral IV Insertion Adult [OM.PC] Stat 03/13/17 12:59 Peripheral IV Care [RC] . DIRECTED Sodium Chloride 0.9% [Saline Flush] 10 ml FLUSH ASDIRECTED PRN 03/13/17 14:04 Magnesium Sulfate/Water [Magnesium Sulfate 4 GM in Water 100 ML] 100 ml IV ONETIME 03/13/17 14:05 Sodium Chloride 0.9% [Normal Saline] 1,000 ml IV .BOLUS
[2017-03-13 12:58] VITALS: BP 126/92
[2017-03-13] MEDS ORDERED: Sodium Chloride 0.9% 10 ML Syringe FLUSH PRN (12:59)
[2017-03-13] MEDS ORDERED: MVI, Adult with Vitamin K 10 ML, Thiamine 100 MG, Folic Acid 1 MG in Lactated Ringers 1... IV ONE ×4 (13:00)
[2017-03-13 13:37] LABS: CHLORIDE,CL 82 mmol/L (101-111); SODIUM,NA 126 mmol/L (135-145)
--- NOTE | 2017-03-13 13:51 | CT ---
Clinical history: 56-year-old alcoholic male frequent falls and head injury. Scan technique: Volume acquisition of data emergency unenhanced CT scan of the head obtained with pa tient lying supine on the Siemens multi slice CT scanner [facility]. All data archived in the PACS system for storage and study (bone/brain windows). Interpretation: Uniformly thick bony calvarium and symmetric clear pneumatization of the mastoid/par anasal sinuses. No sign of skull fracture, underlying brain contusion or epidural/subdural hematoma. No supratentorial or posterior fossa mass lesion. No hydrocephalus. Large, left temporal lobe, arachnoid cyst. Scattered areas of decreased attenuation of the periventricular white matter and extensive decreased attenuation involving the frontal lobes bilaterally characteristic of ischemic disease. No sign of acute intracerebral/intraventricular/subarachnoid bleed. CONCLUSION: Multilobar multi-infarct ischemic disease and extensive frontal lobe ischemia. Large isaiah chnoid cyst left temporal lobe fossa. No fracture or sign of closed head trauma.
[2017-03-13] MEDS ORDERED: Potassium Chloride 10 MEQ Tab.ER PO ONE (13:58)
[2017-03-13] MEDS ORDERED: Potassium Chloride 10 MEQ in Premix Bag 1 BAG IV ONE (13:59)
--- NOTE | 2017-03-13 13:59 | CR ---
Clinical history: 56-year-old male frequent falls. INDICATION: AP portable chest unremarkable. No fractures the bony thorax signs of lung contusion atelectasis pleural effusion or pneumothorax. Normal cardiac silhouette and mediastinal width. No foreign bodies (gown snaps). No cephalization of vascular flow, signs of alveolar edema or dependent effusion. No lung mass, hilar lymphadenopathy or focal lobar pneumonia.
[2017-03-13] MEDS ORDERED: Magnesium Sulfate/Water 100 ML IV ONE (14:04)
[2017-03-13] MEDS ORDERED: Sodium Chloride 0.9% 1,000 ML IV ONE (14:05)
--- NOTE | 2017-03-19 12:18 | EKG ---
03/13/2017 - PATRICIA BOWERS I reviewed the EKG and agree with the machine's reading. [facility] /[id number]
== END 2017-03-13 15:10 ==
LOC: DL.ED 12:50
DX: I63.9 Cerebral infarction, unspecified (principal); R29.6 Repeated falls; F41.8 Other specified anxiety disorders; T14.8 Other injury of unspecified body region; I95.1 Orthostatic hypotension; E87.1 Hypo-osmolality and hyponatremia; E87.6 Hypokalemia; E83.42 Hypomagnesemia; G93.0 Cerebral cysts; I10 Essential (primary) hypertension; W19.XXXA Unspecified fall, initial encounter; Y92.019 Unspecified place in single-family (private) house as the place of occurrence of the external cause; F10.20 Alcohol dependence, uncomplicated; F17.200 Nicotine dependence, unspecified, uncomplicated; Z79.899 Other long term (current) drug therapy
CPT/HCPCS: 36415; 70450; 71010; 80053; 80305; 81001; 82140; 82150; 82550; 83690; 83735; 84443; 84484; 85025; 85610; 85730; 93005; 96361; 96365; 99285; A9270; G0480; J3411; J3475; J3480; J7030; J7050; J7120; J3490

== ENCOUNTER 2017-06-13 15:59 | Observation (INO) | payer OTHER ==
[2017-06-13] MEDS ORDERED: Sodium Chloride 0.9% 10 ML Syringe FLUSH PRN (16:08)
[2017-06-13] MEDS ORDERED: MVI, Adult with Vitamin K 10 ML, Thiamine 100 MG, Folic Acid 1 MG in Lactated Ringers 1... IV ONE ×4 (16:08)
[2017-06-13 16:32] LABS: CHLORIDE,CL 105 mmol/L (101-111); SODIUM,NA 144 mmol/L (135-145)
--- NOTE | 2017-06-13 16:58 | CT ---
Clinical history: 57-year-old male with history of EtOH abuse and now fall with head injury. Scan technique: Volume acquisition of data emergency unenhanced CT scan of the head and brain obtain ed with patient lying supine on the Siemens multislice scanner [facility]. All data archived in the PAC system for storage and study (bone/brain windows). Interpretation: Abnormal but unchanged from earlier exams. No new signs of skull fracture or closed head injury. 1. Asymmetric large arachnoid cyst left temporal fossa that was evident on previous CT scan head 27 November 2016. 2. Chronic multi-infarct ischemic disease involving the periventricular white matter of both cerebra l hemispheres and generalized atrophy pattern also unchanged. 3. *Uniformly thick bony calvarium without sign of skull fracture, underlying brain contusion or epi dural/subdural hematoma. 4. No sign of acute intracerebral/intraventricular/subarachnoid bleed. 5. No new supratentorial or posterior fossa mass lesion. No hydrocephalus.
[2017-06-13] MEDS ORDERED: Diphtheria,Pertussis(Acell),Tetanus Vaccine 0.5 ML SDV IM ONE (17:23)
[2017-06-13] MEDS ORDERED: Thiamine 100 MG Tab PO ONE (17:24)
--- NOTE | 2017-06-13 17:25 | EDM.PDOCBH ---
Scribed by Radha Polanco 06/13/17 [id number] for Frandy Guillaume MD ED HPI GENERAL MEDICAL PROBLEM - General Chief Complaint: Drug or Alcohol Abuse Stated Complaint: FELL,COMING FROM [facility] Time Seen by Provider: 06/13/17 15:59 Source of Information: Reports: Patient, RN, RN Notes Reviewed History Limitations: Reports: Other (alcohol intoxication.) - History of Present Illness INITIAL COMMENTS - FREE TEXT/NARRATIVE: Sent from clinic by Dr. Rasmussen with history of frequent falls with head injury and severe alcohol abuse. Patient admits to drinking about 750mls to 850mls of straight vodka every day for several years. Patient has a bed for a 1 year inpatient treatment in [place] once he is past acute alcohol withdrawal phase. Severity: Severe Improves with: Reports: None Worsens with: Reports: None Associated Symptoms: Reports: No Other Symptoms Left Upper Face Pain Score (Numeric/FACES): 1 - Related Data Allergies Allergy/AdvReac Type Severity Reaction Status Date / Time No Known Allergies Allergy Verified 06/13/17 16:00 Home Meds: Home Meds Escitalopram [Lexapro] 10 mg PO DAILY #30 tablet 12/04/16 [Rx] Folic Acid 1 mg PO DAILY #30 tablet 12/04/16 [Rx] Magnesium Oxide 250 mg PO BIDM #60 tablet 12/04/16 [Rx] Multivitamins/Minerals [Vitamins and Minerals] 1 tab PO WITHBREAKFAST #30 tablet 12/04/16 [Rx] Thiamine [Vitamin B-1] 100 mg PO DAILY #30 tablet 12/04/16 [Rx] Nicotine [Habitrol] 21 mg TRDERM DAILY patch 02/06/17 [Rx] Phosphorus #1 [Neutra-Phos] 500 mg PO QID #8 tablet 02/06/17 [Rx] Past Medical History - Past Health History Medical/Surgical History: Denies Medical/Surgical History HEENT History: Reports: Other (See Below) Other HEENT History: reading glasses Cardiovascular History: Reports: Hypertension Respiratory History: Reports: None Gastrointestinal History: Reports: None Genitourinary History: Reports: None Musculoskeletal History: Reports: None Other Musculoskeletal History: fractured left knuckle cast was placed Neurological History: Reports: Seizure Other Neuro History: due to ETOH intoxication Psychiatric History: Reports: Addiction, Anxiety, Depression, Other (See Below) Other Psychiatric History: ETOH addiction Endocrine/Metabolic History: Reports: None Hematologic History: Reports: Folic Acid Other Hematologic History: on folic acid supplement Immunologic History: Reports: None Oncologic (Cancer) History: Reports: None Dermatologic History: Reports: None - Infectious Disease History Infectious Disease History: Reports: None - Past Surgical History Head Surgeries/Procedures: Reports: None Social & Family History - Family History Family Medical History: Noncontributory Cardiac: Reports: CAD Psychiatric: Reports: Other (See Below) Other Psychiatric Family History: brother of ETOH abuse - Tobacco Use Smoking Status *Q: Current Every Day Smoker Years of Tobacco use: 34 Packs/Tins Daily: 0.5 Used Tobacco, but Quit: No Second Hand Smoke Exposure: No - Caffeine Use Caffeine Use: Reports: Soda Caffeine Use Comment: coffee makes pt sick - Alcohol Use Days Per Week of Alcohol Use: 7 Number of Drinks Per Day: 5 Total Drinks Per Week: 35 - Recreational Drug Use Recreational Drug Use: No - Living Situation & Occupation Living situation: Reports: , with Spouse Occupation: Unemployed ED ROS GENERAL - Review of Systems Review Of Systems: ROS reveals no pertinent complaints other than HPI. ED EXAM, BEHAVIORAL HEALTH - Physical Exam Exam: See Below Exam Limited By: Intoxication General Appearance: Thin, Other (chronically ill appearing.) Eye Exam: Bilateral Eye: Normal Inspection Ears: Normal External Exam, Normal Canal, Hearing Grossly Normal, Normal TMs Nose: Normal Inspection, Normal Mucosa, No Blood Throat/Mouth: Normal Inspection, Normal Lips, Normal Teeth, Normal Gums, Normal Oropharynx, Normal Voice, No Airway Compromise Head: Atraumatic, Normocephalic Neck: Normal Inspection, Supple, Non-Tender, Full Range of Motion Respiratory/Chest: No Respiratory Distress, Lungs Clear, Normal Breath Sounds, No Accessory Muscle Use, Chest Non-Tender Cardiovascular: Regular Rate, Rhythm, Tachycardia GI/Abdominal: Normal Bowel Sounds, Non-Tender, No Distention, Other (positive hepatomegaly). No: Guarding, Rigid, Rebound (Male) Exam: Deferred Rectal (Males) Exam: Deferred Back Exam: Normal Inspection, Full Range of Motion, NT Extremities: Normal Inspection, Normal Range of Motion, Non-Tender, Normal Capillary Refill, No Pedal Edema Neurological: Other (generalized weakness) Skin Exam: Other (several day old laceration at left lateral eyebrow. Resolving bruise at right neck/upper lateral chest.) EKG INTERPRETATION EKG Date: 06/13/17 Time: 16:10 Rhythm: Other (sinus rhythm) Rate (Beats/Min): 77 [place]: Normal P-Wave: Present QRS: Normal ST-T: Normal QT: Normal COURSE, BEHAVIORAL HEALTH COMP - Course Vital Signs: Last Vital Signs Temp 36.9 C 06/13/17 16:01 Pulse 83 06/13/17 16:01 Resp 18 06/13/17 16:01 BP 131/80 06/13/17 16:01 Pulse Ox 100 06/13/17 16:01 Orders, Labs, Meds: Active Orders 24 hr Category Date Time Status EKG 12 Lead [EKG Documentation Completion] [RC] STAT Care 06/13/17 16:07 Active Peripheral IV Care [RC] . DIRECTED Care 06/13/17 16:08 Active Vaccines to be Administered [RC] PER UNIT ROUTINE Care 06/13/17 17:24 Active DRUG SCREEN URINE BIORAD [URCHEM] Stat Lab 06/13/17 16:07 Uncollected UA W/MICROSCOPIC [URIN] Stat Lab 06/13/17 16:07 Uncollected Multivitamins/Minerals [Vitamins and Minerals] Med 06/14/17 08:00 Active 1 tab PO WITHBREAKFAST Nicotine [Habitrol] Med 06/14/17 09:00 Active 21 mg TRDERM DAILY Sodium Chloride 0.9% [Saline Flush] Med 06/13/17 16:08 Active 10 ml FLUSH ASDIRECTED PRN Peripheral IV Insertion Adult [OM.PC] Stat Oth 06/13/17 16:07 Ordered Steri Strips Application [OM.PC] Routine Oth 06/13/17 17:24 Ordered Medication Orders Multivitamins/Minerals (Vitamins And Minerals) 1 tab PO WITHBREAKFAST DAVID Nicotine (Habitrol) 21 mg TRDERM DAILY DAVID Sodium Chloride (Saline Flush) 10 ml FLUSH ASDIRECTED PRN PRN Reason: Keep Vein Open Last Admin: 06/13/17 16:34 Dose: 10 ml Laboratory Tests 06/13/17 06/13/17 06/13/17 Range/Units 16:05 16:05 16:05 WBC 4.2 L (5.0-10.0) 10^3/uL RBC 3.66 L (4.6-6.2) 10^6/uL Hgb 12.9 L (14.0-18.0) g/dL Hct 37.9 L (40.0-54.0) % MCV 103.6 H (80-100) fL MCH 35.2 H (27.0-34.0) pg MCHC 34.0 (33.0-35.0) g/dL Plt Count 158 (150-450) 10^3/uL Neut % (Auto) 56.3 (42.2-75.2) % Lymph % (Auto) 31.1 (20.5-50.1) % [place] % (Auto) 9.9 H (2-8) % Eos % (Auto) 1.7 (1.0-3.0) % Baso % (Auto) 1.0 (0.0-1.0) % PT 10.1 (9.0-12.0) SEC INR 1.0 (0.9-1.2) APTT 23.2 (22.0-34.0) SEC Sodium 144 (135-145) mmol/L Potassium 3.9 (3.6-5.0) mmol/L Chloride 105 (101-111) mmol/L Carbon Dioxide 22.0 (21.0-31.0) mmol/L Anion Gap 20.9 BUN 9 (7-18) mg/dL Creatinine 0.8 (0.6-1.3) mg/dL Est Cr Clr Drug Dosing 95.92 mL/min Estimated GFR (MDRD) > 60 BUN/Creatinine Ratio 11.25 Glucose 122 H (74-105) mg/dL Calcium 8.3 L (8.4-10.2) mg/dl Magnesium 1.8 (1.8-2.5) mg/dL Total Bilirubin 0.8 (0.2-1.0) mg/dL AST 98 H (10-42) IU/L ALT 71 H (10-60) IU/L Alkaline Phosphatase 189 H (42-121) IU/L Ammonia (11-35) umol/L Creatine Kinase 52 (26-174) IU/L Total Protein 6.4 L (6.7-8.2) g/dl Albumin 3.5 (3.2-5.5) g/dl Globulin 2.9 Albumin/Globulin Ratio 1.21 Ethyl Alcohol 276 mg/dL 06/13/17 Range/Units 16:23 WBC (5.0-10.0) 10^3/uL RBC (4.6-6.2) 10^6/uL Hgb (14.0-18.0) g/dL Hct (40.0-54.0) % MCV (80-100) fL MCH (27.0-34.0) pg MCHC (33.0-35.0) g/dL Plt Count (150-450) 10^3/uL Neut % (Auto) (42.2-75.2) % Lymph % (Auto) (20.5-50.1) % [place] % (Auto) (2-8) % Eos % (Auto) (1.0-3.0) % Baso % (Auto) (0.0-1.0) % PT (9.0-12.0) SEC INR (0.9-1.2) APTT (22.0-34.0) SEC Sodium (135-145) mmol/L Potassium (3.6-5.0) mmol/L Chloride (101-111) mmol/L Carbon Dioxide (21.0-31.0) mmol/L Anion Gap BUN (7-18) mg/dL Creatinine (0.6-1.3) mg/dL Est Cr Clr Drug Dosing mL/min Estimated GFR (MDRD) BUN/Creatinine Ratio Glucose (74-105) mg/dL Calcium (8.4-10.2) mg/dl Magnesium (1.8-2.5) mg/dL Total Bilirubin (0.2-1.0) mg/dL AST (10-42) IU/L ALT (10-60) IU/L Alkaline Phosphatase (42-121) IU/L Ammonia 17 (11-35) umol/L Creatine Kinase (26-174) IU/L Total Protein (6.7-8.2) g/dl Albumin (3.2-5.5) g/dl Globulin Albumin/Globulin Ratio Ethyl Alcohol mg/dL Medications Generic Name Dose Route Start Last Admin Trade Name Freq PRN Reason Stop Dose Admin Multivitamins/Minerals 1 tab 06/14/17 08:00 Vitamins And Minerals PO WITHBREAKFAST [facility] Nicotine 21 mg 06/14/17 09:00 Habitrol TRDERM DAILY DAVID Sodium Chloride 10 ml 06/13/17 16:08 06/13/17 16:34 Saline Flush FLUSH 10 ml ASDIRECTED PRN Administration Keep Vein Open Discontinued Medications Generic Name Dose Route Start Last Admin Trade Name Eloise PRN Reason Stop Dose Admin Diphtheria/Tetanus/Acell Pertussis 0.5 ml 06/13/17 17:23 Adacel IM 06/13/17 17:24 .ONCE ONE Multivitamins/Minerals 10 ml/ 1,011.2 mls @ 999 mls/hr 06/13/17 16:08 16:34 Thiamine HCl 100 mg/ Folic IV 06/13/17 17:08 999 mls/hr Acid 1 mg/ Lactated Ringer's .BOLUS ONE Administration CT head: Abnormal but unchanged frpm earlier exam. No new signs of skull fracture or closed head injury. See rad report. Departure - Departure Time of Disposition: 17:18 ((Admit to Dr. Judd)) Disposition: Admitted As Inpatient 67 Condition: Serious Clinical Impression: Chronic alcohol abuse, Frequent falls Acute alcohol intoxication Qualifiers: Complication of substance-induced condition: with unspecified complication Qualified Code(s): F10.929 - Alcohol use, unspecified with intoxication, unspecified Laceration of left eyebrow Qualifiers: Encounter type: initial encounter Qualified Code(s): S01.112A - Laceration without foreign body of left eyelid and periocular area, initial encounter - Discharge Information Referrals: PCP,None [Primary Care Provider] - Forms: ED Department Discharge - My Orders Last 24 Hours: My Active Orders 06/13/17 16:07 EKG 12 Lead [EKG Documentation Completion] [RC] STAT DRUG SCREEN URINE BIORAD [URCHEM] Stat UA W/MICROSCOPIC [URIN] Stat Peripheral IV Insertion Adult [OM.PC] Stat 06/13/17 16:08 Peripheral IV Care [RC] . DIRECTED Sodium Chloride 0.9% [Saline Flush] 10 ml FLUSH ASDIRECTED PRN 06/13/17 17:24 Vaccines to be Administered [RC] PER UNIT ROUTINE Steri Strips Application [OM.PC] Routine - Assessment/Plan Last 24 Hours: My Active Orders 06/13/17 16:07 EKG 12 Lead [EKG Documentation Completion] [RC] STAT DRUG SCREEN URINE BIORAD [URCHEM] Stat UA W/MICROSCOPIC [URIN] Stat Peripheral IV Insertion Adult [OM.PC] Stat 06/13/17 16:08 Peripheral IV Care [RC] . DIRECTED Sodium Chloride 0.9% [Saline Flush] 10 ml FLUSH ASDIRECTED PRN 06/13/17 17:24 Vaccines to be Administered [RC] PER UNIT ROUTINE Steri Strips Application [OM.PC] Routine I have read and agree with the documentation that has been completed regarding this visit. By signing this record, I attest that the documentation was completed in my physical presence and is an accurate record of the encounter.
[2017-06-13] MEDS ORDERED: LORazepam 1 MG Tab PO PRN (17:27)
[2017-06-13] MEDS ORDERED: LORazepam 2 MG/ML Syringe IVPUSH PRN (17:29)
[2017-06-13] MEDS ORDERED: Polyethylene Glycol 3350 Powder 17 GM Packet PO PRN (17:35)
[2017-06-13] MEDS ORDERED: Docusate Sodium 100 MG Cap PO PRN (17:35)
[2017-06-13] MEDS ORDERED: Acetaminophen 325 MG Tab PO PRN (17:35)
[2017-06-13] MEDS ORDERED: Ondansetron 4 MG Tab.DIS PO PRN (17:35)
--- NOTE | 2017-06-13 18:14 | PCM.HP ---
H&P History of Present Illness - General Date of Service: 06/13/17 Admit Problem/Dx: Admission Diagnosis/Problem Admission Diagnosis/Problem Alcohol abuse with intoxication Source of Information: Patient, Provider (dr. Guillaume) - History of Present Illness Initial Comments - Free Text/Narative: The patient is a 57-year-old gentleman with a history of all colon abuse and smoking, multiple admissions for all code abuse and concern for withdrawal. He has failed episodes of focal treatment in the past. He has been living alone drinking heavily. Brought in basically by family. They have already contacted off for treatment facility She had low oral intake, not eating much mostly drinking lots cough. Had multiple falls and multiple bruises. He had no chest pain, no abdominal pain, no black or bloody stool. He has nausea when drinking, is also feeling weak and dizzy. Left Upper Face Pain Score (Numeric/FACES): 1 - Related Data Allergies/Adverse Reactions: Allergies Allergy/AdvReac Type Severity Reaction Status Date / Time No Known Allergies Allergy Verified 06/13/17 17:42 Home Medications: Home Meds Escitalopram [Lexapro] 10 mg PO DAILY #30 tablet 12/04/16 [Rx] Folic Acid 1 mg PO DAILY #30 tablet 12/04/16 [Rx] Magnesium Oxide 250 mg PO BIDM #60 tablet 12/04/16 [Rx] Multivitamins/Minerals [Vitamins and Minerals] 1 tab PO WITHBREAKFAST #30 tablet 12/04/16 [Rx] Thiamine [Vitamin B-1] 100 mg PO DAILY #30 tablet 12/04/16 [Rx] Nicotine [Habitrol] 21 mg TRDERM DAILY patch 02/06/17 [Rx] Phosphorus #1 [Neutra-Phos] 500 mg PO QID #8 tablet 02/06/17 [Rx] Past Medical History - Past Health History Medical/Surgical History: Denies Medical/Surgical History HEENT History: Reports: Other (See Below) Other HEENT History: reading glasses Cardiovascular History: Reports: Hypertension Respiratory History: Reports: None Gastrointestinal History: Reports: None Genitourinary History: Reports: None Musculoskeletal History: Reports: None Other Musculoskeletal History: fractured left knuckle cast was placed Neurological History: Reports: Seizure Other Neuro History: hx of seizure due to ETOH intoxication Psychiatric History: Reports: Addiction, Anxiety, Depression, Other (See Below) Other Psychiatric History: ETOH addiction Endocrine/Metabolic History: Reports: None Hematologic History: Reports: Folic Acid Other Hematologic History: on folic acid supplement Immunologic History: Reports: None Oncologic (Cancer) History: Reports: None Dermatologic History: Reports: None - Infectious Disease History Infectious Disease History: Reports: None - Past Surgical History Head Surgeries/Procedures: Reports: None Social & Family History - Family History Family Medical History: Noncontributory Cardiac: Reports: CAD Psychiatric: Reports: Other (See Below) Other Psychiatric Family History: brother of ETOH abuse - Tobacco Use Smoking Status *Q: Current Every Day Smoker Years of Tobacco use: 34 Packs/Tins Daily: 0.4 Used Tobacco, but Quit: No Second Hand Smoke Exposure: No - Caffeine Use Caffeine Use: Reports: Soda Caffeine Use Comment: coffee makes pt sick - Alcohol Use Days Per Week of Alcohol Use: 7 Number of Drinks Per Day: 10 Total Drinks Per Week: 70 Date of Last Drink: 06/13/17 - Recreational Drug Use Recreational Drug Use: No - Living Situation & Occupation Living situation: Reports: , with Spouse Occupation: Unemployed H&P Review of Systems - Review of Systems: Review Of Systems: See Below General: Denies: Fever Pulmonary: Denies: Shortness of Breath Cardiovascular: Denies: Chest Pain Gastrointestinal: Denies: Abdominal Pain Psychiatric: Reports: Mood Lability, Anxiety. Denies: Hallucinations, Suicidal Ideation Exam - Exam Exam: See Below - Vital Signs Vital Signs: Last Vital Signs Temp 37.1 C 06/13/17 17:43 Pulse 84 06/13/17 17:43 Resp 20 06/13/17 17:43 BP 134/62 06/13/17 17:43 Pulse Ox 100 06/13/17 17:43 Weight: 67.767 kg - Exam General: Alert, Oriented Neck: Supple Lungs: Clear to Auscultation, Normal Respiratory Effort Cardiovascular: Regular Rate, Regular Rhythm GI/Abdominal Exam: Normal Bowel Sounds, Soft, Non-Tender Extremities: No Pedal Edema Skin: Warm, Ecchymosis Neuro Extensive - Mental Status: Alert, Oriented x3 Psychiatric: Alert, Normal Affect, Normal Mood. No: Agitated - Patient Data Result Diagrams: 06/13/17 16:05 06/13/17 16:05 *Q Meaningful Use (ADM) - VTE *Q VTE Criteria *Q: - Stroke *Q Stroke Criteria *Q: - AMI *Q AMI Criteria *Q: - Problem List (1) Chronic alcohol abuse SNOMED Code(s): 225423309 ICD Code: F10.10 - ALCOHOL ABUSE, UNCOMPLICATED Status: Acute Current Visit: Yes (2) Alcoholic hepatitis SNOMED Code(s): 455616253 ICD Code: K70.10 - ALCOHOLIC HEPATITIS WITHOUT ASCITES Status: Chronic Current Visit: No Qualifiers: Ascites presence: without ascites Qualified Code(s): K70.10 - Alcoholic hepatitis without ascites (3) Elevated liver enzymes SNOMED Code(s): 148021383 ICD Code: R74.8 - ABNORMAL LEVELS OF OTHER SERUM ENZYMES Status: Chronic Current Visit: No Problem List Initiated/Reviewed/Updated: Yes Orders Last 24hrs: Medication Orders Acetaminophen (Tylenol) 650 mg PO Q4H PRN PRN Reason: Pain (Mild 1-3)/fever Docusate Sodium (Colace) 100 mg PO BID PRN PRN Reason: Constipation Folic Acid (Folic Acid) 1 mg PO DAILY DAVID Heparin Sodium (Porcine) (Heparin Sodium) 5,000 units SUBCUT Q8HR DAVID Potassium Chloride/Sodium Chloride (Normal Saline With 20 Meq Kcl) 1,000 mls @ 125 mls/hr IV ASDIRECTED DAVID Lorazepam (Ativan) 0 mg PO .Q1H PRN; Protocol PRN Reason: Withdrawal Symptoms Lorazepam (Ativan) 0 mg IVPUSH .Q1H PRN; Protocol PRN Reason: Withdrawal Symptoms Multivitamins (Thera) 1 each PO BEDTIME DAVID Nicotine (Habitrol) 21 mg TRDERM DAILY DAVID Ondansetron HCl (Zofran Odt) 4 mg PO Q6H PRN PRN Reason: nausea, able to take PO Polyethylene Glycol (Miralax) 17 gm PO DAILY PRN PRN Reason: Constipation Sodium Chloride (Saline Flush) 10 ml FLUSH ASDIRECTED PRN PRN Reason: Keep Vein Open Last Admin: 06/13/17 16:34 Dose: 10 ml Thiamine HCl (Vitamin B-1) 100 mg PO DAILY DAVID Zolpidem Tartrate (Ambien) 5 mg PO BEDTIME PRN PRN Reason: Sleep Assessment/Plan Comment:: Acute alcohol INTOXICATION We will treat the patient with IV fluids Safe environment Chronic alcohol use Treat the patient with thiamine folate multivitamin High risk for alcohol withdrawal Will treat with Ativan per [facility] protocol Chronic alcohol addiction Plan for discharge to alcohol treatment program in [place] Smoking Use a nicotine patch DVT prophylaxis with subcutaneous heparin
[2017-06-13] MEDS: Folic Acid 1 MG Tab PO SCH (18:41)
[2017-06-13] MEDS: NS + KCl 20mEq/L 1,000 ML IV SCH (18:42)
[2017-06-13] MEDS: Multivitamins,Therapeutic Tab PO SCH (22:07)
[2017-06-13] MEDS: Heparin Sodium 5,000 Units/ML Vial SUBCUT SCH (22:07)
[2017-06-14] MEDS: Zolpidem 5 MG Tab PO PRN ×2 (01:30→22:27)
[2017-06-14] MEDS: NS + KCl 20mEq/L 1,000 ML IV SCH ×3 (02:50→19:23)
[2017-06-14] MEDS: Heparin Sodium 5,000 Units/ML Vial SUBCUT SCH ×3 (06:24→21:14)
[2017-06-14 07:09] LABS: CHLORIDE,CL 101 mmol/L (101-111); SODIUM,NA 136 mmol/L (135-145)
[2017-06-14] MEDS ORDERED: Multivitamins, Therapeutic with Minerals Tab PO SCH (08:00)
[2017-06-14] MEDS: Folic Acid 1 MG Tab PO SCH (09:37)
[2017-06-14] MEDS: Nicotine 21 MG/24 Hr Patch TRDERM SCH (09:37)
[2017-06-14] MEDS: Thiamine 100 MG Tab PO SCH (09:37)
[2017-06-14] MEDS: Multivitamins,Therapeutic Tab PO SCH (21:14)
[2017-06-15] MEDS: Heparin Sodium 5,000 Units/ML Vial SUBCUT SCH ×2 (05:47→14:37)
[2017-06-15 06:50] VITALS: BP 147/87
[2017-06-15] MEDS: Nicotine 21 MG/24 Hr Patch TRDERM SCH (09:21)
[2017-06-15] MEDS: Folic Acid 1 MG Tab PO SCH (09:22)
[2017-06-15] MEDS: Thiamine 100 MG Tab PO SCH (09:22)
--- NOTE | 2017-06-15 09:37 | PN ---
DATE: 06/14/2017 INTERVAL HISTORY: Mr. Pimentel is a 57-year-old gentleman with a history of chronic alcohol abuse. He was admitted following a fall while intoxicated. He sustained a laceration to the eyebrow, which was repaired in the emergency room. Blood alcohol at the time of admission was 276, which may more or less be a baseline for him. Mr. Pimentel admits to drinking daily vodka. He buys the alcohol in a 1.75 L bottle, and states this lasts him about 3 to 4 days, although it certainly may be shorter period of time. He last drank yesterday on the day of admission. Review of his clinical data shows that he is taking in adequate fluids. He is voiding and moving his bowels. He is tolerating his diet. Vital signs are stable, and he is afebrile. LAB WORK: Performed today including CBC and comprehensive panel. Hemoglobin and hematocrit have gone down slightly to 11.4 and 34, white count was normal, and platelets were reduced at 116. Baseline PT and PTT within normal limits. Chemistry showed normal electrolytes. GFR was more than 60. Blood sugars were controlled. LFTs were slightly abnormal with elevated AST, ALT, and alkaline phosphatase. Total bilirubin today is 1.5 and albumin is 3.3. IMAGING: A head CT was performed at the time of admission because of the fall and showed chronic multi-infarct ischemic changes in the bilateral hemispheres as well as general atrophy. There were no acute findings. ASSESSMENT AND PLAN: The swing bed coordinator has been in discussion with Mr. Pimentel's family. They would like to see him go to an alcohol treatment program. The program that they are asking for is [facility]. It is a phase-based program that was arranged, that would be a private admission. The swing bed coordinator also contacted the alcohol and drug counselors here at [facility], who were familiar with Mr. Pimentel. There is possibility that we can get him into a facility in [place]. He will have to be come off his Ativan, however, prior to admission. We will continue to monitor his Ativan use. He has only been taking it in a limited fashion since admission and does not appear to have significant withdrawal symptoms at this time. We will check with the nursing staff regarding his CIWA score. When it is appropriate, we will consider termination of the p.r.n. Ativan in preparation for discharge. He otherwise remains hemodynamically stable, and no other changes are made in his care today. [facility] /[id number]
--- NOTE | 2017-06-29 10:55 | EKG ---
06/13/2017- PATRICIA BOWERS - EKG per my reading shows sinus rhythm at a rate of [address] [facility] /[id number]
--- NOTE | 2017-07-03 02:09 | DISCH ---
DISCHARGE DIAGNOSES: 1. Chronic alcohol abuse. 2. Acute alcohol intoxication, BAL 276. 3. Status post fall with contusion to the head and laceration to the left eyebrow which appeared to be several days old at the time of admission. 4. Cerebrovascular disease with chronic multi-infarct ischemic disease and generalized atrophy. 5. Discharged to alcohol treatment program. 6. Anemia. 7. Bicytopenia. BRIEF HISTORY OF PRESENT ILLNESS: Mr. Pimentel is a 57-year-old gentleman with a long history of chronic alcohol abuse. He presented again with acute intoxication with a blood alcohol level of 276 and was admitted for treatment. He did well. He did not appear to go into any withdrawal. He was cooperative. Review of his clinical data shows that he was drinking adequate fluids. He was voiding and moving his bowels. He was tolerating his diet. Vital signs remained stable, and he remained afebrile. He remained neurologically stable as well. No evidence for any seizures or acute withdrawal. ASSESSMENT AND PLAN: The swing bed coordinator worked with the patient's family. They would like to see him go to alcohol treatment again. They are requesting admission to a program in [place]. The coordinator contacted the drug and alcohol counselor at [facility], who knows Mr. Pimentel well. They were able to obtain a bed for him at a treatment center in [place]. As long as he is hemodynamically stable and off his Ativan, they would be able to take him as soon as he was ready for discharge. PHYSICAL EXAMINATION: General: On the day of discharge, he voices no new concerns or complaints. He showed no signs of withdrawal. He was alert, oriented, and cooperative. Vital Signs: Blood pressure was 147/87, pulse 65, respiratory rate 20, oxygen saturation 99% on room air. He is afebrile. HEENT: Showed neck to be supple. There is a healing laceration over the left eyebrow. ENT was otherwise clear. No JVDs or bruits. No adenopathy. Chest: Showed clear bilateral breath sounds. Heart: Showed regular rate and rhythm. Abdomen: Benign. Extremities: Showed no edema. Calves were soft and nontender. Neurologic: He is intact. DISCHARGE MEDICATIONS: 1. Thiamine 100 mg daily. 2. Nicotine patches 21 mg daily. 3. Multivitamin with minerals 1 tablet daily. 4. Magnesium oxide 250 mg twice a day. 5. Folic acid 1 mg daily. 6. Lexapro 10 mg daily. ALLERGIES: No known allergies. PERTINENT LABS AND X-RAYS: CBC did show mild bicytopenia with a white count of 4.2 and platelets of 116,000. Hemoglobin and hematocrit following hydration were 11.4 and 34.0. Baseline PT, PTT were unremarkable. Chemistry showed normal electrolytes. Renal function was preserved with a GFR of more than 60. Blood sugars were unremarkable. Liver function was abnormal. Total bilirubin 1.5, AST and ALT were both elevated at 86 and 61. Alkaline phosphatase 189 on admission and 168 on discharge. Albumin 3.3. Urinalysis was unremarkable. Urine toxicology was completely negative. Blood alcohol was 276. CT scan of the head was performed without contrast. He had apparently fallen within the last few days and had a contusion and laceration to the head. This showed no acute findings. There was chronic multi-infarct ischemic disease bilaterally as well as generalized atrophy. This was unchanged from previous study. There were no acute findings. A 12-lead EKG was performed and showed a normal sinus rhythm with a ventricular rate of 77. Normal axis and intervals. No acute ST-segment or T-wave changes. PLAN: The patient will be discharged to an alcohol treatment program in [place]. CONDITION AT THE TIME OF DISCHARGE: Hemodynamically and neurologically stable. RESUSCITATION STATUS DURING THIS ADMISSION: Full code. [facility] /[id number] MTDD
== END 2017-06-15 11:10 ==
LOC: DL.ED 15:59 → DL.MS 17:35 → UNDOADMIN 17:35 → INTOOBSV 17:35
PROVIDERS: ADMIT Internal Medicine; ATTEND Internal Medicine
DX: F10.929 Alcohol use, unspecified with intoxication, unspecified (principal); S01.112A Laceration without foreign body of left eyelid and periocular area, initial encounter; K70.10 Alcoholic hepatitis without ascites; R74.8 Abnormal levels of other serum enzymes; I10 Essential (primary) hypertension; F41.9 Anxiety disorder, unspecified; F32.9 Major depressive disorder, single episode, unspecified; F17.210 Nicotine dependence, cigarettes, uncomplicated; Z79.899 Other long term (current) drug therapy; Z91.81 History of falling; W19.XXXA Unspecified fall, initial encounter
CPT/HCPCS: 36415; 70450; 80048; 80053; 80076; 80305; 81001; 82140; 82550; 83735; 85025; 85610; 85730; 90715; 93005; 96365; 99285; A9270; G0480; J1644; J3411; J3480; J7050; J7120; 96366; 96367; 96372; G0378; J3490

== ENCOUNTER 2017-11-02 13:19 | Inpatient (IN) | payer BC, OTHER ==
[2017-11-02] MEDS ORDERED: MVI, Adult with Vitamin K 10 ML, Folic Acid 1 MG, Thiamine 100 MG in Lactated Ringers 1... IV ONE ×4 (15:40)
[2017-11-02] MEDS: Sodium Chloride 0.9% 10 ML Syringe FLUSH PRN ×2 (16:03→19:21)
[2017-11-02 16:15] LABS: CHLORIDE,CL 83 mmol/L (101-111); SODIUM,NA 129 mmol/L (135-145)
[2017-11-02] MEDS ORDERED: Magnesium Sulfate/Water 2 GM in Premix Bag 1 BAG IV ONE (16:26)
[2017-11-02] MEDS ORDERED: NS + KCl 20mEq/L 1,000 ML IV SCH (16:30)
[2017-11-02] MEDS ORDERED: Bisacodyl 10 MG Supp RECTAL PRN (17:20)
[2017-11-02] MEDS ORDERED: LORazepam 2 MG/ML Syringe IVPUSH PRN (17:32)
[2017-11-02] MEDS: Sodium Chloride 0.9% with KCl 1,000 ML IV SCH (19:15)
[2017-11-02] MEDS: Magnesium Hydroxide 400 MG/5 ML Susp 30 ML Cup PO PRN (21:38)
[2017-11-02] MEDS ORDERED: Potassium Chloride 10 MEQ Tab.ER PO STA (23:14)
[2017-11-02] MEDS: Potassium Chloride 10 MEQ in Premix Bag 1 BAG IV SCH (23:36)
[2017-11-03] MEDS: Potassium Chloride 10 MEQ in Premix Bag 1 BAG IV SCH ×2 (01:03→02:13)
[2017-11-03] MEDS ORDERED: Potassium Chloride 10 MEQ in Premix Bag 1 BAG IV ONE (02:15)
--- NOTE | 2017-11-03 07:46 | EDM.PDOCBH ---
Scribed by Radha Polanco 11/02/17 9713 for Irene Gilmore NP ED HPI GENERAL MEDICAL PROBLEM - General Chief Complaint: Drug or Alcohol Abuse Stated Complaint: FELL.IN BY DL AMB. Time Seen by Provider: 11/02/17 15:14 Source of Information: Reports: Patient, Family, RN, RN Notes Reviewed History Limitations: Reports: No Limitations - History of Present Illness INITIAL COMMENTS - FREE TEXT/NARRATIVE: Patient was drinking yesterday and last night. Last drink was prior to arriving to the hospital. He states he has not eaten in several days. He has had nausea and vomiting for several days. States he has not had a bowel movement in 3 to 4 weeks. Patient states falling at home with the last one on Sunday when he received a laceration above the left eye. Location: Reports: Abdomen Quality: Reports: Ache Severity: Moderate Improves with: Reports: None Worsens with: Reports: None Associated Symptoms: Reports: No Other Symptoms - Related Data Allergies Allergy/AdvReac Type Severity Reaction Status Date / Time No Known Allergies Allergy Verified 06/13/17 17:42 Past Medical History - Past Health History Medical/Surgical History: Denies Medical/Surgical History HEENT History: Reports: Other (See Below) Other HEENT History: reading glasses Cardiovascular History: Reports: Hypertension Respiratory History: Reports: None Gastrointestinal History: Reports: None Genitourinary History: Reports: None Musculoskeletal History: Reports: None Other Musculoskeletal History: fractured left knuckle cast was placed Neurological History: Reports: Seizure Other Neuro History: hx of seizure due to ETOH intoxication Psychiatric History: Reports: Addiction, Anxiety, Depression, Other (See Below) Other Psychiatric History: ETOH addiction Endocrine/Metabolic History: Reports: None Hematologic History: Reports: Folic Acid Other Hematologic History: on folic acid supplement Immunologic History: Reports: None Oncologic (Cancer) History: Reports: None Dermatologic History: Reports: None - Infectious Disease History Infectious Disease History: Reports: None - Past Surgical History Head Surgeries/Procedures: Reports: None Social & Family History - Family History Family Medical History: Noncontributory Cardiac: Reports: CAD Psychiatric: Reports: Other (See Below) Other Psychiatric Family History: brother of ETOH abuse - Tobacco Use Smoking Status *Q: Former Smoker Years of Tobacco use: 34 Packs/Tins Daily: 0.4 Used Tobacco, but Quit: Yes Month Tobacco Last Used: 09/21 Second Hand Smoke Exposure: No - Caffeine Use Caffeine Use: Reports: Coffee Caffeine Use Comment: coffee makes pt sick - Alcohol Use Days Per Week of Alcohol Use: 7 Number of Drinks Per Day: 10 Total Drinks Per Week: 70 - Recreational Drug Use Recreational Drug Use: No - Living Situation & Occupation Living situation: Reports: , with Spouse Occupation: Unemployed ED ROS GENERAL - Review of Systems Review Of Systems: ROS reveals no pertinent complaints other than HPI. ED EXAM, BEHAVIORAL HEALTH - Physical Exam Exam: See Below Exam Limited By: No Limitations General Appearance: Alert, WD/WN, No Apparent Distress Eye Exam: Bilateral Eye: Normal Inspection Ears: Normal External Exam, Normal Canal, Hearing Grossly Normal, Normal TMs Nose: Normal Inspection, Normal Mucosa, No Blood Throat/Mouth: Normal Inspection, Normal Lips, Normal Teeth, Normal Gums, Normal Oropharynx, Normal Voice, No Airway Compromise Head: Atraumatic, Normocephalic Neck: Normal Inspection, Supple, Non-Tender, Full Range of Motion Respiratory/Chest: Lungs Clear Cardiovascular: Regular Rate, Rhythm GI/Abdominal: Tender (Male) Exam: Deferred Rectal (Males) Exam: Deferred Back Exam: Normal Inspection, Full Range of Motion, NT Extremities: Other (Weak with decreased range of motion.) Neurological: Alert, Normal Mood/Affect, CN II-XII Intact, Normal Cognition, Normal Gait, Normal Reflexes, No Motor/Sensory Deficits, Oriented x 3 Psychiatric: Alert, Normal Affect, Normal Cognition, Normal Mood, Oriented Skin Exam: Warm, Dry, Intact, Normal color, No rash COURSE, BEHAVIORAL HEALTH COMP - Course Vital Signs: Last Vital Signs Temp 97 F 11/02/17 14:01 Pulse 122 H 11/02/17 14:01 Resp 14 11/02/17 14:01 BP 97/52 L 11/02/17 14:01 Pulse Ox 100 11/02/17 14:01 Orders, Labs, Meds: Active Orders 24 hr Category Date Time Status Peripheral IV Care [RC] . DIRECTED Care 11/02/17 15:39 Active DRUG SCREEN URINE BIORAD [URCHEM] Stat Lab 11/02/17 15:39 Uncollected UA W/MICROSCOPIC [URIN] Stat Lab 11/02/17 15:39 Uncollected Magnesium Sulfate/Water [Magnesium Sulfate 2 GM in Med 11/02/17 16:26 Active Water 50 ML] 2 gm Premix Bag 1 bag IV ONETIME NS + KCl 20mEq/L [Normal Saline with 20 mEq KCl] 1,000 Med 11/02/17 16:30 Active ml IV ASDIRECTED Sodium Chloride 0.9% [Saline Flush] Med 11/02/17 15:39 Active 10 ml FLUSH ASDIRECTED PRN Peripheral IV Insertion Adult [OM.PC] Stat Oth 11/02/17 15:39 Ordered Medication Orders Magnesium Sulfate 2 gm/ Premix 50 mls @ 25 mls/hr IV ONETIME ONE Stop: 11/02/17 18:25 Potassium Chloride/Sodium Chloride (Normal Saline With 20 Meq Kcl) 1,000 mls @ 150 mls/hr IV ASDIRECTED DAVID Sodium Chloride (Saline Flush) 10 ml FLUSH ASDIRECTED PRN PRN Reason: Keep Vein Open Last Admin: 11/02/17 16:03 Dose: 10 ml Laboratory Tests 11/02/17 11/02/17 Range/Units 15:48 15:48 WBC 5.5 (5.0-10.0) 10^3/uL RBC 3.76 L (4.6-6.2) 10^6/uL Hgb 12.2 L (14.0-18.0) g/dL Hct 33.9 L (40.0-54.0) % MCV 90.2 D (80-100) fL MCH 32.4 (27.0-34.0) pg MCHC 36.0 H (33.0-35.0) g/dL Plt Count 202 D (150-450) 10^3/uL Neut % (Auto) 71.8 (42.2-75.2) % Lymph % (Auto) 10.8 L (20.5-50.1) % [place] % (Auto) 16.1 H (2-8) % Eos % (Auto) 0.2 L (1.0-3.0) % Baso % (Auto) 1.1 H (0.0-1.0) % Sodium 129 L (135-145) mmol/L Potassium 2.5 L D (3.6-5.0) mmol/L Chloride 83 L D (101-111) mmol/L Carbon Dioxide 24.0 (21.0-31.0) mmol/L Anion Gap 24.5 BUN 23 H (7-18) mg/dL Creatinine 1.0 (0.6-1.3) mg/dL Est Cr Clr Drug Dosing TNP Estimated GFR (MDRD) > 60 BUN/Creatinine Ratio 23.00 Glucose 145 H (74-105) mg/dL Calcium 9.5 (8.4-10.2) mg/dl Magnesium 1.5 L (1.8-2.5) mg/dL Total Bilirubin 4.0 H (0.2-1.0) mg/dL AST 69 H (10-42) IU/L ALT 41 (10-60) IU/L Alkaline Phosphatase 106 (42-121) IU/L Total Protein 7.5 (6.7-8.2) g/dl Albumin 4.2 (3.2-5.5) g/dl Globulin 3.3 Albumin/Globulin Ratio 1.27 Ethyl Alcohol 7 mg/dL Medications Generic Name Dose Route Start Last Admin Trade Name Freq PRN Reason Stop Dose Admin Magnesium Sulfate 2 gm/ Premix 50 mls @ 25 mls/hr 11/02/17 16:26 IV 11/02/17 18:25 ONETIME ONE Potassium Chloride/Sodium Chloride 1,000 mls @ 150 mls/hr 11/02/17 16:30 Normal Saline With 20 Meq Kcl IV ASDIRECTED DAVID Sodium Chloride 10 ml 11/02/17 15:39 11/02/17 16:03 Saline Flush FLUSH 10 ml ASDIRECTED PRN Administration Keep Vein Open Discontinued Medications Generic Name Dose Route Start Last Admin Trade Name Freq PRN Reason Stop Dose Admin Multivitamins/Minerals 10 ml/ 1,011.2 mls @ 999 mls/hr 11/02/17 15:40 16:16 Folic Acid 1 mg/ Thiamine HCl IV 11/02/17 16:40 999 mls/hr 100 mg/ Lactated Ringer's ONETIME ONE Administration Departure - Departure Time of Disposition: 17:16 Disposition: Admitted As Inpatient 67 Condition: Poor, Serious Clinical Impression: Hypomagnesemia, Frequent falls, Hypokalemia, Chronic alcohol abuse - Discharge Information Forms: ED Department Discharge - My Orders Last 24 Hours: My Active Orders 11/02/17 15:39 Peripheral IV Care [RC] . DIRECTED DRUG SCREEN URINE BIORAD [URCHEM] Stat UA W/MICROSCOPIC [URIN] Stat Sodium Chloride 0.9% [Saline Flush] 10 ml FLUSH ASDIRECTED PRN Peripheral IV Insertion Adult [OM.PC] Stat 11/02/17 16:26 Magnesium Sulfate/Water [Magnesium Sulfate 2 GM in Water 50 ML] 2 gm Premix Bag 1 bag IV ONETIME 11/02/17 16:30 NS + KCl 20mEq/L [Normal Saline with 20 mEq KCl] 1,000 ml IV ASDIRECTED - Assessment/Plan Last 24 Hours: My Active Orders 11/02/17 15:39 Peripheral IV Care [RC] . DIRECTED DRUG SCREEN URINE BIORAD [URCHEM] Stat UA W/MICROSCOPIC [URIN] Stat Sodium Chloride 0.9% [Saline Flush] 10 ml FLUSH ASDIRECTED PRN Peripheral IV Insertion Adult [OM.PC] Stat 11/02/17 16:26 Magnesium Sulfate/Water [Magnesium Sulfate 2 GM in Water 50 ML] 2 gm Premix Bag 1 bag IV ONETIME 11/02/17 16:30 NS + KCl 20mEq/L [Normal Saline with 20 mEq KCl] 1,000 ml IV ASDIRECTED I have read and agree with the documentation that has been completed regarding this visit. By signing this record, I attest that the documentation was completed in my physical presence and is an accurate record of the encounter.
[2017-11-03] MEDS: Sodium Chloride 0.9% with KCl 1,000 ML IV SCH (08:52)
[2017-11-03] MEDS: Multivitamins, Therapeutic with Minerals Tab PO SCH (09:31)
[2017-11-03] MEDS: Folic Acid 1 MG Tab PO SCH (09:31)
[2017-11-03] MEDS ORDERED: Potassium Chloride 10 MEQ Tab.ER PO ONE (14:34)
[2017-11-03] MEDS ORDERED: Iopamidol 612 MG/ML 100 ML Bottle IVPUSH ONE (16:43)
[2017-11-03] MEDS: Potassium Chloride 10 MEQ Tab.ER PO SCH (17:23)
[2017-11-03] MEDS ORDERED: Ondansetron 4 MG/2 ML SDV IV PRN (18:07)
[2017-11-03] MEDS ORDERED: Calcium Carbonate 500 MG Tab.Chew PO PRN (20:40)
[2017-11-03] MEDS: Thiamine 100 MG Tab PO SCH (20:49)
[2017-11-04] MEDS: Multivitamins, Therapeutic with Minerals Tab PO SCH (08:51)
[2017-11-04] MEDS: Potassium Chloride 10 MEQ Tab.ER PO SCH ×2 (08:51→17:58)
[2017-11-04] MEDS: Folic Acid 1 MG Tab PO SCH (08:52)
[2017-11-04] MEDS: Magnesium Hydroxide 400 MG/5 ML Susp 30 ML Cup PO PRN (14:26)
[2017-11-04] MEDS: Thiamine 100 MG Tab PO SCH (21:27)
[2017-11-05] MEDS: Potassium Chloride 10 MEQ Tab.ER PO SCH ×2 (08:49→18:20)
[2017-11-05] MEDS: Folic Acid 1 MG Tab PO SCH (08:50)
[2017-11-05] MEDS: Multivitamins, Therapeutic with Minerals Tab PO SCH (08:50)
[2017-11-05] MEDS: Magnesium Hydroxide 400 MG/5 ML Susp 30 ML Cup PO PRN (08:54)
[2017-11-05] MEDS: Thiamine 100 MG Tab PO SCH (20:33)
--- NOTE | 2017-11-06 08:41 | PN ---
DATE: 11/04/2017 SUBJECTIVE: Mr. Pimentel was seen by Physical Therapy today for evaluation. Physical Therapy found him to be weak with no strength. He is at high fall risk. He needs a moderate assist of 2. He needs to be constantly reminded that he is being asked to move or change position. He is in need of strengthening. She also agreed that his mentation was poor, thus the need for constant reminding of what he is supposed to be doing. No new lab work was performed today. Review of his vital signs showed him to be stable. He is afebrile. There has been no seizure activity or withdrawal. No hallucinations. No evidence for DTs. He is taking in fluids. He is voiding. He still has not moved his bowels. His appetite is only fair. He continues to drink well. OBJECTIVE: Vital Signs: On exam, blood pressure 111/67, pulse 100, respiratory rate 20, oxygen saturation 98% on room air. He is afebrile. General: His face seems bello, most likely due to fluids. HEENT: Clear. Chest: Showed clear bilateral breath sounds. Heart: Showed regular rate and rhythm. Abdomen: Soft, flat, benign, and nontender. Extremities: Showed no edema. He is moving all extremities. He still has not had bowel movement, but he is passing gas, and we continue to provide p.r.n. milk of magnesia, and he is on Senna S at this time. No other changes are made in his care today. [facility] /[id number]
[2017-11-06] MEDS: Folic Acid 1 MG Tab PO SCH (08:44)
[2017-11-06] MEDS: Potassium Chloride 10 MEQ Tab.ER PO SCH ×2 (08:44→18:08)
--- NOTE | 2017-11-06 08:44 | PN ---
DATE: 11/03/2017 SUBJECTIVE: Mr. Pimentel was admitted yesterday. He has chronic alcohol abuse and was living alone at home by himself, becoming increasingly debilitated and weak and has fallen multiple times and is now unable to care for himself and was admitted. Review of his clinical data overnight shows stable vital signs. He remains afebrile. He is taking in adequate fluids. In fact, he is drinking quite a bit of water, juice, and milk. His appetite is fair. He is tolerating the diet. He is voiding but has not moved his bowels yet. LABORATORY DATA: A repeat lab work this morning includes potassium of 3.2, magnesium 1.7, amylase 231, and lipase 161. PHYSICAL EXAMINATION: General: He is lying in bed. His mentation remained slow. He does not participate spontaneously in the exam. He does not appear to be in any distress. Vital Signs: Blood pressure is 111/67, pulse 100, respiratory rate 20, oxygen saturation 98% on room air, and he is afebrile. HEENT: Unremarkable. ENT was clear. Chest: Showed clear but diminished bilateral breath sounds. Heart: Showed regular rate and rhythm. Abdomen: Soft, flat, and benign. Extremities: Showed no edema. Neurological: He was moving his extremities, but mentation remains slow. PLAN: I did speak with the crisis counselor on-call for the weekend. Mr. Pimentel is known to her, and she will contact his regular A and D counselor, Alvarado, and we will make a plan for his disposition next week. Because of his slow mentation, it is unlikely that he will be able to participate in treatment which would require cognitive involvement. She does not seem capable of at this time. No other changes are made today. [facility] /[id number]
[2017-11-06] MEDS: Multivitamins, Therapeutic with Minerals Tab PO SCH (08:45)
--- NOTE | 2017-11-06 09:50 | PN ---
DATE: 11/05/2017 SUBJECTIVE: Mr. Pimentel is certainly looking better. His face is more filled out, now that he has been drinking fluids. Appetite remains poor. He actually did get up from the bed today and walked with nursing standby assistance out into the hallway and back to his room. This is the first time he has been able to ambulate any distance at all. Otherwise, he has remained afebrile. Vital signs are stable. He continues to be confused, and mentation remains slow. We talked briefly again today about possibilities of treatment versus placement. At some point, he may need long-term placement because of his general debility and weakness and his history of multiple falls. We will work with the addiction counselor at [facility] to come up with a plan. LABORATORY DATA: Labs today include a repeat hemoglobin and hematocrit. At the time of admission, they were 12.2 and 33.9, and today with hydration, have gone down to 9.5 and 27.5. Sodium is 131, potassium is normal at 4, magnesium normal at 1.8. Total bilirubin is down to 2.6, and amylase and lipase are lower at 151 and 61 respectively. PLAN: We will continue the present management. On Sunday, we hope to talk to the addiction counselor. I also have been told that Adult Protective Services is aware of Mr. Pimentel, and I have placed a call Nuvia Vallejo and asked her to call me on Sunday to discuss his overall situation. No other changes are made. [facility] /[id number] PAUL
--- NOTE | 2017-11-06 11:02 | HP ---
REASON FOR ADMISSION: General debility and weakness, nausea and vomiting, unable to ambulate, unable to care for himself at home. BRIEF HISTORY OF PRESENT ILLNESS: Nirav Pimentel is a 57-year-old male with a long history of chronic alcohol abuse. He currently lives alone. He states that he has not been able to walk. He has been crawling to the bathroom on his hands and knees, but he can no longer even get himself back up into the bed because of weakness. He says that he has been falling and cannot walk. He has not been eating and has had about a 50 pound weight loss. He denies any blood by mouth or rectum. There has been no vomiting. According to him, he has not had a bowel movement in several weeks. He was evaluated in the Emergency Department and was found to be in poor physical condition and was admitted for further management. PAST MEDICAL HISTORY: Chronic alcohol abuse, hypomagnesemia, frequent falls, hyponatremia, depression, cerebrovascular disease with possible previous CVA, had been a daily smoker for more than 30 years up until about a month ago, chronic low back pain with degenerative disk disease of lumbosacral spine. PAST SURGICAL HISTORY: None. SOCIAL HISTORY: He is retired from the [employer]. He is , but he and his spouse do not live together. He has a long history of alcohol abuse and has been to treatment 8 previous times. He last went to the [facility] in [place] on 08/09/2017 for a 30-day course of treatment. This admission took place secondary to "family intervention," per the patient. He states that he sees Alvarado, his addiction counselor, at the [facility]. He states he would like to go back to [place] for treatment. He has been to AA in the past, he goes, but then he slowly stops going. He started drinking at the age of [age] years old. He went from beer to vodka and beer and then eventually just vodka and he would drink about a half of a 1.75 liter bottle of vodka daily. Now he can only manage a few sips at a time and alcohol makes him sick to his stomach, but he does continue to drink. He denies that he has had blackouts. He had hallucinations once. He says he has not had seizures. He wants to stop. He said the longest he has been able not drink is 4 hours and that was the amount of time it took him to drive from his last treatment back to [place] where he immediately started drinking again. REVIEW OF SYSTEMS: As above. CURRENT MEDICATIONS: No known. He does not take any medications at this time. ALLERGIES: No known allergies. PHYSICAL EXAMINATION: General: He is gaunt looking, disheveled. Mentation is slow. He does not appear to be in any distress. He is quite thin, almost cachectic. Vital Signs: Blood pressure was 111/72 on the left, 114/77 on the right; pulse 100 to 122 and regular, respiratory rate 20, oxygen saturation 100% on room air. He is afebrile. Height 5 feet 10 inches, weight 153 pounds 4.8 ounces. Max lifetime weight was about 190 pounds. HEENT: Unremarkable. ENT was clear. Sclerae are not visibly icteric. Mouth shows dry mucous membranes. Neck: No JVDs or bruits. No adenopathy. No thyromegaly. Chest: Showed diminished bilateral breath sounds without wheezes, rales, or rhonchi. Heart: Showed regular rate and rhythm. Abdomen was soft, flat, benign, nontender. No guarding, no rebound. Extremities: Thin and show no edema. Neurological: He is moving all his extremities, but mentation is quite slow and he has no strength and is unable to get himself up off the bed without assistance of two. LABORATORY DATA: CBC showed a white count of 5.5, platelets of 202,000, hemoglobin and hematocrit of 12 and 34. Chemistry showed sodium 129, potassium 2.5, magnesium 1.5, BUN and creatinine of 23 and 1.0 with a GFR of more than 60. Total bilirubin was 4.0, AST 69, amylase was elevated at 352. Urinalysis showed a dark, almost Coca Cola colored urine with a specific gravity 1.020 with a large amount of bilirubin. Unremarkable microscopic exam. Urine toxicology was negative and blood alcohol was only 7. A single-view chest x-ray was performed and showed no acute findings. There is no infiltrate, no cardiomegaly, no pulmonary venous congestion. We ordered a flat and upright film of the abdomen to evaluate his comment that he had not had bowel movement. There were no acute findings. There was some stool in the upper colon, but no air-fluid levels. No dilated loops of bowel. No appreciable stool within the rectosigmoid area. We reviewed a CT scan of the head performed on 03/13/2017 following a fall and head injury. 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 These frontal lobe changes may account, in part, for his slow mentation. IMPRESSION: A 57-year-old male with a long history of alcohol abuse, now presents in general decline, unable to care for himself. Lab work is remarkable for electrolyte abnormalities. PLAN: 1. Mr. Pimentel was admitted as an acute inpatient. He was started on IV fluids of normal saline with potassium supplement. He was given additional boluses of magnesium sulfate, as well as potassium. 2. He was started on folic acid and thiamine, as well as a multivitamin for his chronic alcoholism. 3. Ativan and CIWA protocol was ordered, but he did not appear to be tremulous or in active withdrawal, probably because he has not been drinking very much for quite some time. 4. We started him on Senna-S 1 tablet twice a day for his constipation. 5. We will follow his electrolytes and replace as needed. We have also ordered repeat amylase with lipase for labs tomorrow. 6. I will call the crisis counselor garment alteration examiner for the weekend and see if we can get in touch with his addiction counselor after the holiday weekend and decide on some type of disposition. Family is not present and did not stay for the admission. CONDITION AT TIME OF ADMISSION: Hemodynamically, neurologically stable. CODE STATUS: Full code. [facility] /[id number] MTDD
[2017-11-06] MEDS: Thiamine 100 MG Tab PO SCH (22:11)
[2017-11-07] MEDS: Potassium Chloride 10 MEQ Tab.ER PO SCH ×2 (09:51→18:23)
[2017-11-07] MEDS: Folic Acid 1 MG Tab PO SCH (09:51)
[2017-11-07] MEDS: Multivitamins, Therapeutic with Minerals Tab PO SCH (09:51)
[2017-11-07] MEDS: Thiamine 100 MG Tab PO SCH (20:52)
[2017-11-07] MEDS ORDERED: Naltrexone 50 MG Tab PO SCH (21:00)
[2017-11-08] MEDS: Multivitamins, Therapeutic with Minerals Tab PO SCH (08:02)
[2017-11-08] MEDS: Potassium Chloride 10 MEQ Tab.ER PO SCH ×2 (08:02→17:15)
[2017-11-08] MEDS: Folic Acid 1 MG Tab PO SCH (08:02)
[2017-11-08] MEDS: Thiamine 100 MG Tab PO SCH (20:38)
[2017-11-08] MEDS ORDERED: Naltrexone 50 MG Tab PO SCH (21:00)
[2017-11-09] MEDS: Potassium Chloride 10 MEQ Tab.ER PO SCH (07:54)
[2017-11-09] MEDS: Multivitamins, Therapeutic with Minerals Tab PO SCH (07:54)
[2017-11-09] MEDS: Folic Acid 1 MG Tab PO SCH ×2 (07:55→08:23)
[2017-11-09 08:04] VITALS: BP 118/69
--- NOTE | 2017-11-16 05:32 | PN ---
DATE: 11/07/2017 SUBJECTIVE: Mr. Pimentel is a 57-year-old gentleman with a long history of chronic alcohol abuse and multiple previous inpatient treatments. He was admitted in markedly debilitated state. He has now been receiving fluid hydration with electrolyte replacement for the hypokalemia and hypomagnesemia found at the time of admission. He also has been working on a daily basis with therapy to regain strength and improve ambulation. Overall, he has been making progress. He is looking and feeling better. He is tolerating his diet. Strength is improving, and he is up and moving and walking. At this time, we are waiting for the treatment plan from the [facility]. Review of his clinical data shows that his oral intake is improving. He also was tolerating 100% of his meals. He is voiding. He has been now moving his bowels. Vital signs have remained stable, and he has remained afebrile. Repeat lab work this morning shows improved hemoglobin and hematocrit of 9.9 and 29.9. Potassium is now normal at 4.1 and magnesium is borderline at 1.7. Medications are reviewed. We have hep-locked his IV fluids as he is taking in adequate fluids. He continues on oral magnesium and potassium supplements. He also continues on thiamine and folic acid as well as a multivitamin to help with the long-term injury to his nervous system by the alcohol. He has not had any marked DTs. He is not tremulous at this point. He is alert and oriented. Mentation is improving, but he still is somewhat slow in his mentation and goes off on tangents when talking to him. Today, we are going to start him on naltrexone 50 mg at bedtime to be used as an inhibitor of alcohol cravings. Two counselors returned today from [facility]. They met with Mr. Pimentel and then I spoke with them also. A treatment plan has been offered. There is a bed for him at the [facility] in [place]. He will be discharged to there on Sunday, 11/09. After he is finished there, he will return to the [facility] in [place] to continue treatment. [facility] are lining up transportation for him, and he is expected in [place] on Sunday the . PHYSICAL EXAMINATION: General: He voices no new concerns or complaints. He continues to improve. Vital Signs: Blood pressure 105/66, pulse of 78, respiratory rate 20, oxygen saturation 100% on room air. He is afebrile. HEENT: Clear. Chest: Showed clear bilateral breath sounds. Heart: Showed regular rate and rhythm. Abdomen: Benign. Extremities: Showed no edema. Neurological: He is improving. Changes today as above. We now have a treatment plan in place. We will continue the oral medications that he is on and prepare for discharge on Sunday the to inpatient treatment at [place]. [facility] /[id number]
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
--- NOTE | 2017-11-16 05:48 | PN ---
DATE: 11/08/2017 SUBJECTIVE: Mr. Pimentel is a 57-year-old gentleman with a long history of chronic alcohol abuse. He was admitted in markedly debilitated state. Throughout the admission, he has improved significantly. He also presented with hypokalemia and hypomagnesemia. Electrolytes were replaced initially IV and then oral supplements were added. The IV has been discontinued, and he continues on oral potassium chloride and magnesium oxide with improvement in his electrolytes. He was seen by Therapy, and he has been getting up and moving around more on his own now and walking in the hallways and is doing well. Mood and affect are improving. At times, he still seems rather vague and goes off on tangents, but mentation seems to be improving. [facility] have been working with him this week, and we now have a discharge plan. He will be discharged tomorrow and will be taken directly to [facility] in [place], where he will enter into inpatient treatment. From there, he will return to the [facility] in [place] for further treatment and transition back to home. There are multiple psychosocial and family issues as contributing factors to his current situation, and he and the therapist will address these on an ongoing basis. Mr. Pimentel expresses that he knows he needs to make changes to situations which appear to be quite detrimental to him, and he will work with the counselors to which he did some changes. Review of his clinical data shows good oral intake. He is voiding and moving his bowels. He is tolerating 100% of his meals. Vital signs are stable, and he is afebrile. OBJECTIVE: Vital Signs: Blood pressure today 115/74, pulse 87, respiratory rate 20, oxygen saturation 100% on room air, and he is afebrile. HEENT: Unremarkable. ENT was clear. Chest: Showed clear bilateral breath sounds. Heart: Showed regular rate and rhythm. Abdomen: Soft and benign. Extremities: Showed no edema. Neurological: He is intact and mentation is improving. We will continue the present management. He is off all IV medications at this time. We are continuing with naltrexone 50 mg at bedtime. The current plan is for discharge tomorrow morning. Human Services are helping to arrange transportation, and he will go directly to inpatient in [place]. Mr. Pimentel questions whether he could go home tonight and spend the night at home, getting clothing ready, packing personal items. Both the hospital and Human Services staff feel that this is not in his best interest. We will see that he gets discharged early enough in the morning that he can be driven home to prepare for the trip. He is also told not to worry about clothing that he could bring any of his clothes along and wash them once he got to [place] but that going home to be alone tonight did not seem to be in his best interest. He agreed with this, and he has agreed to stay today until he can be discharged in the morning. Apparently, they have arranged for his brother, Apollo, to drive him to [place]. They will be discharged in the morning, and they need to be at the treatment center by 2:00 p.m. on Sunday afternoon. Review of his clinical data shows he is taking in adequate fluids, he is voiding, moving his bowels, he is tolerating 100% of his diet. Vital signs are stable, and he remains afebrile. He has been up and walking in his room and in the halls. He is certainly more appropriate in his mentation and seems to be improving on a daily basis. We will continue the present management and plan for discharge in the morning. [facility] /[id number]
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
== END 2017-11-09 08:45 | DRG 861 ==
LOC: DL.ED 13:19 → DL.MS 17:15
PROVIDERS: ADMIT Internal Medicine; ATTEND Internal Medicine
DX: R53.1 Weakness (principal); E83.42 Hypomagnesemia; E87.6 Hypokalemia; F10.20 Alcohol dependence, uncomplicated; Z91.81 History of falling; I10 Essential (primary) hypertension; F32.9 Major depressive disorder, single episode, unspecified; F41.9 Anxiety disorder, unspecified; Z87.891 Personal history of nicotine dependence; G89.29 Other chronic pain; M54.9 Dorsalgia, unspecified; R41.0 Disorientation, unspecified
CPT/HCPCS: 36415; 71010; 71260; 74000; 74177; 80053; 80305; 81001; 82150; 82247; 82272; 83690; 83735; 84132; 84295; 85014; 85018; 85025; 96361; 96365; 96366; 97116-GP; 97161-GP; 97165-GO; 99284; A9270-GY; G0480; J2060; J2405; J3411; J3475; J3480; J3490; J7050; J7120; Q9967

== ENCOUNTER 2021-08-22 13:09 | Emergency (ER) | payer BC, OTHER ==
[2021-08-22 13:57] VITALS: BP 153/106; PULSE 102
--- NOTE | 2021-08-22 16:01 | CR ---
EXAMINATION: Abdomen 3V AP/Flat Upright SEX: Male AGE: 61 years CLINICAL HISTORY: 61-year-old male with abdominal pain. Interpretation: Small air-fluid levels scattered along the course of normal caliber colon suggesting gastroenteritis. Clinical? No abdominal soft tissue mass lesion, pathologic calcifications or signs of mechanical small bowel obstruction. No foreign bodies. Lung bases clear. AP lumbar spine pelvis and hips unremarkable.
--- NOTE | 2021-08-22 16:12 | EDM.PDOC ---
ED HPI GENERAL MEDICAL PROBLEM - General Chief Complaint: Gastrointestinal Problem Stated Complaint: BODY AHCHES /DIARRHEA/NO FEVER Time Seen by Provider: 08/22/21 13:20 - History of Present Illness INITIAL COMMENTS - FREE TEXT/NARRATIVE: Nirav is a 61-year-old man who presents with 2-day history of mild abdominal pain as well as upset stomach and diarrhea. He reports to me that he does have a significant history of alcohol use, that he drinks a large amount of alcohol per day. He reports no past history of liver problems from his drinking. He tells me over the last 24 hours, has not been able to drink or eat much, and that he has been having a lot of loose stools. He has been making himself drink fluids. He reports no fevers or chills, has had some intermittent mild abdominal pain, especially in his right upper quadrant. - Related Data Allergies Allergy/AdvReac Type Severity Reaction Status Date / Time No Known Allergies Allergy Verified 08/22/21 14:09 Home Meds: Home Meds ondansetron HCL [Ondansetron HCl] 4 mg PO Q8H PRN #21 tablet 08/22/21 [Rx] Past Medical History - Past Health History Medical/Surgical History: Denies Medical/Surgical History HEENT History: Reports: None, Other (See Below) Other HEENT History: reading glasses Cardiovascular History: Reports: Hypertension Respiratory History: Reports: None Gastrointestinal History: Reports: None Genitourinary History: Reports: None Musculoskeletal History: Reports: None Other Musculoskeletal History: fractured left knuckle cast was placed Neurological History: Reports: Seizure Other Neuro History: hx of seizure due to ETOH intoxication Psychiatric History: Reports: Addiction, Anxiety, Depression, Other (See Below) Other Psychiatric History: ETOH addiction Endocrine/Metabolic History: Reports: None Hematologic History: Reports: None, Folic Acid Other Hematologic History: on folic acid supplement Immunologic History: Reports: None Oncologic (Cancer) History: Reports: None Dermatologic History: Reports: None - Infectious Disease History Infectious Disease History: Reports: None - Past Surgical History Head Surgeries/Procedures: Reports: None Cardiovascular Surgical History: Reports: None GI Surgical History: Reports: None Male Surgical History: Reports: None Musculoskeletal Surgical History: Reports: None Social & Family History - Family History Family Medical History: No Pertinent Family History Cardiac: Reports: CAD Psychiatric: Reports: Other (See Below) Other Psychiatric Family History: brother of ETOH abuse - Tobacco Use Tobacco Use Status *Q: Current Every Day Tobacco User Years of Tobacco use: 30 Packs/Tins Daily: 1 - Caffeine Use Caffeine Use: Reports: Coffee, Soda Caffeine Use Comment: coffee makes pt sick - Recreational Drug Use Recreational Drug Use: No - Living Situation & Occupation Living situation: Reports: , with Spouse Occupation: Unemployed ED ROS GENERAL - Review of Systems Review Of Systems: See Below Free Text/Narrative/Comment: See HPI ED EXAM, GI/ABD - Physical Exam Exam: See Below Text/Narrative:: General: Nirav is a 61-year-old man in no acute distress Oropharynx is clear, mucous membranes are tacky to dry Neck: Supple, no lymphadenopathy Heart: Regular rate and rhythm, no murmurs Lungs: Clear to auscultation throughout Abdomen: Soft, mildly tender to palpation of the right upper quadrant, but I would call this a negative Guallpa sign. No organomegaly is detected Course - Vital Signs Last Recorded V/S: Last Vital Signs Temp 97.1 F 08/22/21 13:56 Pulse 102 H 08/22/21 13:56 Resp 18 08/22/21 13:56 BP 153/106 H 08/22/21 13:56 Pulse Ox 98 08/22/21 13:56 - Orders/Labs/Meds Labs: Laboratory Tests 08/22/21 08/22/21 08/22/21 Range/Units 13:55 14:19 14:19 WBC 11.4 H (5.0-10.0) 10^3/uL RBC 4.97 (4.6-6.2) 10^6/uL Hgb 17.0 D (14.0-18.0) g/dL Hct 47.8 (40.0-54.0) % MCV 96.2 D (80-100) fL MCH 34.2 H (27.0-34.0) pg MCHC 35.6 H (33.0-35.0) g/dL Plt Count 160 (150-450) 10^3/uL Neut % (Auto) 84.6 H (42.2-75.2) % Lymph % (Auto) 7.7 L (20.5-50.1) % [place] % (Auto) 7.2 (2-8) % Eos % (Auto) 0.1 L (1.0-3.0) % Baso % (Auto) 0.4 (0.0-1.0) % Sodium 138 (136-145) mmol/L Potassium 4.0 (3.5-5.1) mmol/L Chloride 96 L (98-107) mmol/L Carbon Dioxide 30 (21-32) mmol/L Anion Gap 16.0 H (7-13) mEq/L BUN 19 H (7-18) mg/dL Creatinine 1.29 (0.70-1.30) mg/dL Est Cr Clr Drug Dosing 62.88 mL/min Estimated GFR (MDRD) 57 BUN/Creatinine Ratio 14.7 (No establ ref range) Glucose 128 H (70-99) mg/dL Lactic Acid (0.4-2.0) mmol/L Calcium 9.7 (8.5-10.1) mg/dL Total Bilirubin 2.0 H (0.2-1.0) mg/dL AST 115 H (15-37) U/L ALT 97 H (16-63) U/L Alkaline Phosphatase 132 H (46-116) U/L Total Protein 8.6 H (6.4-8.2) g/dL Albumin 4.6 (3.4-5.0) g/dL Globulin 4.0 Albumin/Globulin Ratio 1.1 Lipase 80 (73-393) U/L SARS-CoV-2 RNA (SABRINA) Negative (NEGATIVE) 08/22/21 Range/Units 14:19 WBC (5.0-10.0) 10^3/uL RBC (4.6-6.2) 10^6/uL Hgb (14.0-18.0) g/dL Hct (40.0-54.0) % MCV (80-100) fL MCH (27.0-34.0) pg MCHC (33.0-35.0) g/dL Plt Count (150-450) 10^3/uL Neut % (Auto) (42.2-75.2) % Lymph % (Auto) (20.5-50.1) % [place] % (Auto) (2-8) % Eos % (Auto) (1.0-3.0) % Baso % (Auto) (0.0-1.0) % Sodium (136-145) mmol/L Potassium (3.5-5.1) mmol/L Chloride (98-107) mmol/L Carbon Dioxide (21-32) mmol/L Anion Gap (7-13) mEq/L BUN (7-18) mg/dL Creatinine (0.70-1.30) mg/dL Est Cr Clr Drug Dosing mL/min Estimated GFR (MDRD) BUN/Creatinine Ratio (No establ ref range) Glucose (70-99) mg/dL Lactic Acid 1.5 (0.4-2.0) mmol/L Calcium (8.5-10.1) mg/dL Total Bilirubin (0.2-1.0) mg/dL AST (15-37) U/L ALT (16-63) U/L Alkaline Phosphatase (46-116) U/L Total Protein (6.4-8.2) g/dL Albumin (3.4-5.0) g/dL Globulin Albumin/Globulin Ratio Lipase (73-393) U/L SARS-CoV-2 RNA (SABRINA) (NEGATIVE) Departure - Departure Time of Disposition: 16:10 Disposition: Home, Self-Care 01 Clinical Impression: Chronic alcohol abuse Alcoholic hepatitis Qualifiers: Ascites presence: without ascites Qualified Code(s): K70.10 - Alcoholic hepatitis without ascites - Discharge Information *PRESCRIPTION DRUG MONITORING PROGRAM REVIEWED*: Not Applicable *COPY OF PRESCRIPTION DRUG MONITORING REPORT IN PATIENT MARC: Not Applicable Prescriptions: ondansetron HCL [Ondansetron HCl] 4 mg PO Q8H PRN #21 tablet PRN Reason: Nausea/Vomiting Instructions: Alcoholic Hepatitis Referrals: PCP,None [Primary Care Provider] - Forms: ED Department Discharge Additional Instructions: Stay well hydrated, follow up with your primary care provider if further symptoms Sepsis Event Note (ED) - Evaluation Sepsis Screening Result: No Definite Risk - Problem List & Annotations (1) Alcoholic hepatitis SNOMED Code(s): 692619081 Code(s): K70.10 - ALCOHOLIC HEPATITIS WITHOUT ASCITES Status: Chronic Qualifiers: Ascites presence: without ascites Qualified Code(s): K70.10 - Alcoholic hepatitis without ascites - Problem List Review Problem List Initiated/Reviewed/Updated: Yes - Assessment/Plan Assessment:: 1. 61-year-old man with mild alcoholic hepatitis Plan: 1. Nirav and I discussed that this is the first sign that his liver is now being damaged by his alcohol use. We talked about the fact that this should resolve in time if he quits drinking. He will follow-up with his primary care provider early next week if he is still unable to keep down food and fluids.
== END 2021-08-22 16:40 | disposition home or self-care (01) ==
LOC: DL.ED 13:09
DX: K70.10 Alcoholic hepatitis without ascites (principal); F10.10 Alcohol abuse, uncomplicated; I10 Essential (primary) hypertension; Z72.0 Tobacco use; Z20.822 Contact with and (suspected) exposure to COVID-19
CPT/HCPCS: 36415; 74019; 80053; 83605; 83690; 85025; 99284-25; U0002

== ENCOUNTER 2023-09-22 07:02 | Emergency (ER) | payer OTHER ==
[2023-09-22 07:19] VITALS: BP 141/87; PULSE 82
== END 2023-09-22 08:09 | disposition home or self-care (01) ==
LOC: DL.ED 07:02
DX: S62.356A Nondisplaced fracture of shaft of fifth metacarpal bone, right hand, initial encounter for closed fracture (principal); I10 Essential (primary) hypertension; W22.8XXA Striking against or struck by other objects, initial encounter
CPT/HCPCS: 73130-RT; 99282; 99283

== ENCOUNTER 2023-12-22 14:40 | Inpatient (IN) | payer OTHER ==
[2023-12-22] MEDS: MVI, Adult with Vitamin K 10 ML, Folic Acid 1 MG, Thiamine 100 MG in Lactated Ringers 1... IV ONE (15:31)
[2023-12-22 15:50] LABS: ALANINE AMINOTRANSFERASE,ALT 42 U/L (16-63); ALBUMIN 2.8 g/dL (3.4-5.0); ALKALINE PHOSPHATASE 129 U/L (46-116); ANION GAP 16.1 mEq/L (7-13); ASPARTATE AMNIOTRANSFERASE,AST 104 U/L (15-37); BILIRUBIN TOTAL 0.8 mg/dL (0.2-1.0); BLOOD UREA NITROGEN,BUN 12 mg/dL (7-18); CALCIUM 7.8 mg/dL (8.5-10.1); CARBON DIOXIDE,CO2 26 mmol/L (21-32); CHLORIDE,CL 90 mmol/L (98-107); CREATININE 0.86 mg/dL (0.70-1.30); GLUCOSE RANDOM 124 mg/dL (70-99); PROTEIN TOTAL,TP 6.3 g/dL (6.4-8.2); SODIUM,NA 130 mmol/L (136-145)
[2023-12-22 15:51] LABS: HEMATOCRIT 24.6 % (40.0-54.0); HEMOGLOBIN 8.9 g/dL (14.0-18.0); MEAN CORPUSCULAR HEMOGLOBIN 36.6 pg (27.0-34.0); MEAN CORPUSCULAR HGB CONC 36.2 g/dL (33.0-35.0); MEAN CORPUSCULAR VOLUME 101.2 fL (80-100); PLATELET COUNT,PLT 326 10^3/uL (150-450); RED BLOOD CELL COUNT 2.43 10^6/uL (4.6-6.2); WHITE BLOOD CELL COUNT,WBC 5.6 10^3/uL (5.0-10.0)
[2023-12-22 15:54] LABS: ESTIMATED GFR 98 mL/min (>=60); ETHANOL BLOOD MEDICAL 322 mg/dL (0); POTASSIUM,K 2.1 mmol/L (3.5-5.1)
[2023-12-22 15:55] LABS: BASOPHILS PERCENT AUTO 3.4 % (0.0-1.0); EOSINOPHILS PERCENT AUTO 2.5 % (1.0-3.0); LYMPHOCYTES PERCENT AUTO 23.8 % (20.5-50.1); MONOCYTES PERCENT AUTO 14.6 % (2-8); NEUTROPHILS PERCENT AUTO 55.7 % (42.2-75.2)
[2023-12-22] MEDS: Potassium Chloride 10 MEQ Tab.ER PO ONE (16:13)
[2023-12-22] MEDS: NS with KCl 40mEq 1,000 ML IV SCH (16:24)
[2023-12-22] MEDS: Sodium Chloride 0.9% 10 ML Syringe FLUSH PRN (16:33)
[2023-12-22 16:53] LABS: INR 1.3 (0.9-1.2); PROTHROMBIN TIME 12.8 SEC (9.0-12.0)
[2023-12-22 17:28] LABS: EOSINOPHILS PERCENT MAN 2 % (1-3); LYMPHOCYTES PERCENT MAN 22 % (20-50); MONOCYTES PERCENT MAN 10 % (2-8); SEG NEUTROPHILS PERCENT MAN 64 % (42-75)
[2023-12-22] MEDS ORDERED: LORazepam 0.5 MG Tab PO PRN (19:18)
[2023-12-22] MEDS ORDERED: Docusate Sodium 100 MG Cap PO PRN (19:19)
[2023-12-22] MEDS ORDERED: Ondansetron 4 MG/2 ML SDV IVPUSH PRN (19:19)
[2023-12-22] MEDS: Potassium Chloride 10 MEQ Tab.ER PO STA (20:36)
[2023-12-22] MEDS: ClonazePAM 0.5 MG Tab PO SCH (20:36)
[2023-12-22] MEDS: Thiamine 100 MG Tab PO ONE (20:36)
[2023-12-23] MEDS: NS + KCl 20mEq/L 1,000 ML IV SCH (01:49)
[2023-12-23] MEDS: Pantoprazole 40 MG Tab.CR PO SCH (05:19)
[2023-12-23 05:33] LABS: AMPHETAMINES,URINE NEGATIVE (NEGATIVE); BARBITURATES,URINE NEGATIVE (NEGATIVE); BENZODIAZEPINE,URINE NEGATIVE (NEGATIVE); MDMA (ECSTASY), URINE NEGATIVE (NEGATIVE); METHADONE,URINE NEGATIVE (NEGATIVE); METHAMPHETAMINES,URINE NEGATIVE (NEGATIVE); OPIATES,URINE NEGATIVE (NEGATIVE); OXYCODONE,URINE NEGATIVE (NEGATIVE); PHENCYCLIDINE,URINE NEGATIVE (NEGATIVE); TCA,URINE NEGATIVE (NEGATIVE)
[2023-12-23 06:25] LABS: BASOPHILS PERCENT AUTO 1.4 % (0.0-1.0); EOSINOPHILS PERCENT AUTO 1.3 % (1.0-3.0); HEMATOCRIT 22.4 % (40.0-54.0); HEMOGLOBIN 7.8 g/dL (14.0-18.0); LYMPHOCYTES PERCENT AUTO 13.9 % (20.5-50.1); MEAN CORPUSCULAR HEMOGLOBIN 36.3 pg (27.0-34.0); MEAN CORPUSCULAR HGB CONC 34.8 g/dL (33.0-35.0); MEAN CORPUSCULAR VOLUME 104.2 fL (80-100); NEUTROPHILS PERCENT AUTO 72.4 % (42.2-75.2); PLATELET COUNT,PLT 295 10^3/uL (150-450); RED BLOOD CELL COUNT 2.15 10^6/uL (4.6-6.2); WHITE BLOOD CELL COUNT,WBC 7.8 10^3/uL (5.0-10.0)
[2023-12-23 06:37] LABS: ANION GAP 8.2 mEq/L (7-13); BLOOD UREA NITROGEN,BUN 12 mg/dL (7-18); CALCIUM 7.5 mg/dL (8.5-10.1); CARBON DIOXIDE,CO2 30 mmol/L (21-32); CHLORIDE,CL 96 mmol/L (98-107); CREATININE 0.75 mg/dL (0.70-1.30); EST CRCL DRUG DOSING (CG) 102.54 mL/min; ESTIMATED GFR 102 mL/min (>=60); ETHANOL BLOOD MEDICAL < 3 mg/dL (0); GLUCOSE RANDOM 119 mg/dL (70-99); POTASSIUM,K 4.2 mmol/L (3.5-5.1); SODIUM,NA 130 mmol/L (136-145)
[2023-12-23] MEDS: Folic Acid 1 MG Tab PO SCH (09:07)
[2023-12-23] MEDS: Thiamine 100 MG Tab PO SCH (09:07)
[2023-12-23] MEDS: Multivitamin Tab PO SCH (09:07)
[2023-12-23] MEDS: Nicotine 21 MG/24 Hr Patch TRDERM SCH (11:48)
[2023-12-23] MEDS: [UNRECOGNIZED DRUG - REMARK] TRDERM SCH (21:47)
[2023-12-24] MEDS: Acetaminophen 325 MG Tab PO PRN (08:32)
[2023-12-24] MEDS: ClonazePAM 0.5 MG Tab PO SCH (08:38)
[2023-12-24] MEDS: Benzocaine/Cetylpyridinium/Menthol Lozenge MUCMEM PRN (14:06)
[2023-12-24] MEDS: Benzocaine/Cetylpyridinium/Menthol Lozenge MUCMEM STA (15:43)
[2023-12-24] MEDS ORDERED: LORazepam 0.5 MG Tab PO PRN (16:05)
[2023-12-24] MEDS: LORazepam 1 MG Tab PO PRN (16:41)
[2023-12-24] MEDS ORDERED: LORazepam 1 MG Tab PO PRN (18:49)
[2023-12-25 11:38] VITALS: BP 122/75; PULSE 81
== END 2023-12-25 13:05 | disposition home or self-care (01) | DRG 897 ==
LOC: DL.ED 14:40 → DL.MS 16:33
PROVIDERS: ADMIT Internal Medicine; ATTEND Internal Medicine
DX: F10.129 Alcohol abuse with intoxication, unspecified (principal); G96.08 Other cranial cerebrospinal fluid leak; K29.20 Alcoholic gastritis without bleeding; I10 Essential (primary) hypertension; F41.9 Anxiety disorder, unspecified; F32.A Depression, unspecified; E87.6 Hypokalemia; D64.9 Anemia, unspecified; F17.210 Nicotine dependence, cigarettes, uncomplicated; G93.0 Cerebral cysts; R19.7 Diarrhea, unspecified; Z91.81 History of falling; Z79.899 Other long term (current) drug therapy; Z86.16 Personal history of COVID-19
CPT/HCPCS: 36415; 70450; 80048; 80053; 80305-QW; 80307; 82272; 82607; 83735; 85025; 85610; 96365; 96375; 97161-GP; 97165-GO; 99223; 99232; 99239; 99285; 99285-25; A9270-GY; J3411; J3480; J3490; J7120

== ENCOUNTER 2024-02-08 11:25 | Emergency (ER) | payer OTHER ==
[2024-02-08 12:06] LABS: HEMATOCRIT 42.1 % (40.0-54.0); HEMOGLOBIN 14.4 g/dL (14.0-18.0); MEAN CORPUSCULAR HEMOGLOBIN 32.4 pg (27.0-34.0); MEAN CORPUSCULAR HGB CONC 34.2 g/dL (33.0-35.0); MEAN CORPUSCULAR VOLUME 94.8 fL (80-100); PLATELET COUNT,PLT 141 10^3/uL (150-450); RED BLOOD CELL COUNT 4.44 10^6/uL (4.6-6.2)
[2024-02-08 12:10] LABS: EOSINOPHILS PERCENT AUTO 2.1 % (1.0-3.0); LYMPHOCYTES PERCENT AUTO 24.4 % (20.5-50.1); NEUTROPHILS PERCENT AUTO 58.9 % (42.2-75.2)
[2024-02-08 12:11] LABS: BASOPHILS PERCENT AUTO 0.6 % (0.0-1.0)
[2024-02-08 12:29] LABS: INR 1.4 (0.9-1.2); PROTHROMBIN TIME 14.4 SEC (9.0-12.0); PTT,PARTIAL THROMBOPLSTIN TIME 25.3 SEC (22.0-34.0)
[2024-02-08 12:37] LABS: ALANINE AMINOTRANSFERASE,ALT 46 U/L (16-63); ALBUMIN 2.8 g/dL (3.4-5.0); ALKALINE PHOSPHATASE 202 U/L (46-116); ASPARTATE AMNIOTRANSFERASE,AST 62 U/L (15-37); BILIRUBIN TOTAL 1.3 mg/dL (0.2-1.0); BLOOD UREA NITROGEN,BUN 24 mg/dL (7-18); BUN/CREATININE RATIO 19.8 (No establ ref range); CALCIUM 8.4 mg/dL (8.5-10.1); CARBON DIOXIDE,CO2 32 mmol/L (21-32); CHLORIDE,CL 95 mmol/L (98-107); CREATININE 1.21 mg/dL (0.70-1.30); EST CRCL DRUG DOSING (CG) 59.29 mL/min; GLUCOSE RANDOM 133 mg/dL (70-99); MAGNESIUM 1.7 mg/dL (1.8-2.4); PROTEIN TOTAL,TP 7.3 g/dL (6.4-8.2); SODIUM,NA 135 mmol/L (136-145); TSH ULTRASENSITIVE 10.31 uIU/mL (0.36-3.74)
[2024-02-08] MEDS: MVI, Adult with Vitamin K 10 ML, Thiamine 100 MG, Folic Acid 1 MG in Lactated Ringers 1... IV ONE (12:37)
[2024-02-08] MEDS: Sodium Chloride 0.9% 10 ML Syringe FLUSH PRN (12:38)
[2024-02-08 12:41] LABS: A/G RATIO 0.62; ACETAMINOPHEN 0 ug/mL (10-30 (Therapeutic)); ESTIMATED GFR 68 mL/min (>=60); ETHANOL BLOOD MEDICAL < 3 mg/dL (0)
[2024-02-08 13:05] LABS: BAND PERCENT MAN 1 %; EOSINOPHILS PERCENT MAN 3 % (1-3); LYMPHOCYTES PERCENT MAN 28 % (20-50); MONOCYTES PERCENT MAN 9 % (2-8)
[2024-02-08 13:06] LABS: SEG NEUTROPHILS PERCENT MAN 53 % (42-75)
[2024-02-08] MEDS ORDERED: NS with KCl 40mEq 1,000 ML IV SCH (13:15)
[2024-02-08 13:46] VITALS: BP 127/95; PULSE 98
[2024-02-08 13:50] LABS: APPEARANCE,URINE CLEAR (CLEAR); BILIRUBIN,URINE NEGATIVE (NEGATIVE); COLOR,URINE YELLOW (YELLOW); GLUCOSE,URINE NEGATIVE (NEGATIVE); KETONES,URINE NEGATIVE (NEGATIVE); LEUKOCYTE ESTERASE,URINE NEGATIVE (NEGATIVE); NITRITE,URINE NEGATIVE (NEGATIVE); OCCULT BLOOD,URINE NEGATIVE (NEGATIVE); PH,URINE 6.5 (5.0-9.0); PROTEIN,URINE NEGATIVE (NEGATIVE)
[2024-02-08 13:55] LABS: AMPHETAMINES,URINE NEGATIVE (NEGATIVE); BARBITURATES,URINE NEGATIVE (NEGATIVE); BENZODIAZEPINE,URINE NEGATIVE (NEGATIVE); MDMA (ECSTASY), URINE NEGATIVE (NEGATIVE); METHADONE,URINE NEGATIVE (NEGATIVE); METHAMPHETAMINES,URINE NEGATIVE (NEGATIVE); OPIATES,URINE NEGATIVE (NEGATIVE); OXYCODONE,URINE NEGATIVE (NEGATIVE); PHENCYCLIDINE,URINE NEGATIVE (NEGATIVE); TCA,URINE NEGATIVE (NEGATIVE)
[2024-02-08] MEDS: Potassium Chloride 10 MEQ Tab.ER PO ONE (14:37)
== END 2024-02-08 14:55 | disposition home or self-care (01) ==
LOC: DL.ED 11:25
DX: E87.6 Hypokalemia (principal); R62.7 Adult failure to thrive; F10.10 Alcohol abuse, uncomplicated; Z13.9 Encounter for screening, unspecified; Z79.899 Other long term (current) drug therapy; Z86.16 Personal history of COVID-19; Y90.9 Presence of alcohol in blood, level not specified
CPT/HCPCS: 36415; 80053; 80143; 80179; 80305; 80307; 81003; 82140; 83735; 84443; 85025; 85610; 85730; 96365; 99284; A9270; J3411; J7120; J3490